=== PATIENT | female | born 2000 | race Caucasian/White ===

== ENCOUNTER 2021-01-02 10:59 | Emergency (ER) | payer MEDICAID, SELFPAY ==
[2021-01-02 10:59] VITALS: BP 140/81; PULSE 89; RESP 18; TEMP 37; O2SAT 100; BMI 20.1
--- NOTE | 2021-01-02 11:20 | PC.NURSE ---
Spoke with [facility] Hortencia Rivers APRN to come see pt.
--- NOTE | 2021-01-02 11:28 | PC.NURSE ---
Crackers given to pt
--- NOTE | 2021-01-02 11:36 | PC.NURSE ---
Pt states that she just set up an appointment with dee in [place] and hasn't seen them yet. Pt states she is agreeable to see [facility] here but wants to get out of here as soon as possible.
--- NOTE | 2021-01-02 11:41 | HMH.EDGENADL ---
ED Disposition Clinical Impression: Second trimester , Anemia affecting Depression Qualifiers: Depression Type: other depression Qualified Code(s): F32.89 - Other specified depressive episodes Disposition: Home Health Service Condition on Discharge: Fair Instructions: Depression (Mild to Moderate) (Alternative Therapy) Additional Instructions: Follow-up with psychiatry clinic as scheduled return to emergency room if any suicidal thoughts take [id number] iron supplements follow-up with [facility] Referrals: Arabella Ramos APRN [Primary Care Provider] - Time of Disposition: 12:00 - Critical Care Critical Care Time: No Attestation: On 01/02/21, the high probability of a clinically significant, sudden or life threatening deterioration of the following system(s) required my full and direct attention, intervention and personal management. The time I documented below is in addition to time spent performing reported procedures but includes the following listed in this critical care notation. Medical Decision Making - Medical Records Medical records reviewed: Yes: I reviewed the patient's medical records. - Ba Inquiry Pt receiving controlled substance: No Vital Signs: 01/02/21 10:59 Temperature 98.6 F Temperature Source Oral Pulse Rate [Left Radial] 89 Respiratory Rate 18 Blood Pressure [Right Arm] 140/81 Blood Pressure Mean [Right Arm] 100 Blood Pressure Source [Right Arm] Automatic Cuff Blood Pressure Position [Right Arm] Sitting 02 Sat by Pulse Oximetry 100 Oxygen Delivery Method Room Air - Lab Data Lab results reviewed: Yes: I reviewed the patient's lab results. Medical Decision Narrative: 20-year-old gravid female 3 para 1 history of depression in the past was here because she mentioned to her new web knitter that she at one point felt like hurting herself after arguments with her mom where police was called at the present time she denies any suicidal tendencies does not want to hurt her self she is not homicidal. She is here with her boyfriend she is gotten flattened affect but otherwise normal exam. Consult with psychiatry nurse practitioner who has set up an appointment for the patient. General Adult HPI - General Chief complaint: Psychiatric Symptoms Stated complaint: depression Time Seen by Provider: 01/02/21 11:10 Mode of Arrival: Ambulatory Source of Information: Patient Limitations: No Limitations Description of Symptoms (Recalled from ER Triage Doc. by RN): Pt sent by her pediatric social worker because she had a thought yesterday about hurting herself. States she had no plan or how she was going to do this, also states that she has not thought of hurting herself at the current moment but she had told her pediatric social worker this and she was told to come for evaluation. - History of Present Illness HPI narrative: Patient is a 20-year-old 3 para 1 with history of depression in the past 5 months who has had altercations with her mother who called police on her and since then has had a pediatric social worker for the last 4 days patient mentioned the possibility of hurting herself several days ago but has no suicidal thoughts or intentions or plan now. Outside of the web knitter patient has no psychiatric history. Lives with boyfriend. - Related Data Allergies Allergy/AdvReac Type Severity Reaction Status Date / Time Penicillins Allergy Verified 01/02/21 11:28 [facility] History - Hepatitis A Screen Drug use history?: No High risk sexual behaviors?: No History of sexually transmitted infection?: No Currently employed?: No Childcare worker?: No Do you have indoor plumbing?: Yes Do you have electricity?: Yes Attestation statement:: This patient has been screened for Hepatitis A risk factors. I have reviewed the patient's past medical history: Yes - Social History Alcohol Intake: never Occupational Status: other ROS Obtained
--- NOTE | 2021-01-02 11:41 | PC.NURSE ---
Hortencia Rivers at bedside
[2021-01-02 12:03] VITALS: BP 132/71; PULSE 74; RESP 16; TEMP 36.7; O2SAT 98
== END 2021-01-02 12:09 | disposition home health service (06) ==
PROVIDERS: Emergency Provider Emergency Medicine; PCP Nurse Practitioner Family
DX: O99.342 Other mental disorders complicating pregnancy, second trimester (principal); Z3A.20 20 weeks gestation of pregnancy; O99.019 Anemia complicating pregnancy, unspecified trimester
CPT/HCPCS: 99281

== ENCOUNTER 2021-04-02 14:43 | Outpatient (CLI) | payer MEDICAID, SELFPAY ==
[2021-04-02 15:20] VITALS: BMI 23.1
[2021-04-02 15:22] VITALS: BP 115/79; PULSE 76; RESP 20; O2SAT 99; BMI 23.1
[2021-04-02 15:36] LABS: Microscopic, Urine URINE MICROSCOPIC (MICROSCOPIC)
[2021-04-02 15:38] LABS: Appearance,Urine CLEAR (Clear); Bilirubin,Urine Negative (Negative); Blood, Urine Negative (Negative); Color,Urine YELLOW (Yellow); Glucose,Urine (UA) Negative (Negative); Ketones,Urine Negative (Negative); Leukocyte Esterase,Urine TRACE (Negative); Nitrate,Urine Negative (Negative); PH,Urine 7.5 (5.0-8.5); Protein,Urine Negative (Negative); Urobilinogen,Urine 0.2 EU/dl (0.2)
[2021-04-02 15:50] LABS: Amphetamine/Metha Screen,Urine Negative ng/ml (<1000)
[2021-04-02 15:51] LABS: Barbiturates Screen,Urine Negative ng/ml (<200); Benzodiazepines Screen,Urine Negative ng/ml (<200)
[2021-04-02 15:52] LABS: Cannabinoid Screen,Urine Positive ng/ml (<50); Cocaine Screen,Urine Negative ng/ml (<300)
[2021-04-02 15:53] LABS: Methadone Screen,Urine Negative ng/ml (<300)
[2021-04-02 15:54] LABS: Opiate Screen,Urine Negative ng/ml (<300); Phencyclidine Screen,Urine Negative ng/ml (<25); RBC,Urine Occasional #/hpf (0-3)
== END 2021-04-02 15:50 | disposition home or self-care (01) ==
LOC: OBOUT 14:46 → OB 14:48
PROVIDERS: PCP Nurse Practitioner Family; Visit Provider Nurse Practitioner Obstetrics & Gynecology
DX: O47.03 False labor before 37 completed weeks of gestation, third trimester (principal); Z3A.34 34 weeks gestation of pregnancy
CPT/HCPCS: 59025; 80305; 81001

== ENCOUNTER 2021-04-03 09:43 | Outpatient (CLI) | payer MEDICAID, SELFPAY ==
[2021-04-03 09:48] VITALS: BP 131/77; PULSE 63; RESP 18; TEMP 37; O2SAT 100; BMI 23.1
--- NOTE | 2021-04-03 09:49 | US_ITS ---
PROCEDURE: US OB >= 14 WEEKS FETUS CLINICAL INDICATION: vaginal bleeding COMPARISON: No exams were available for comparison FINDINGS: The exam is limited secondary to lack of amniotic fluid. There is a single live fetus which is in breech presentation. There are no previous exams available for comparison. Cervix is closed and measures 3 cm. The placenta is anterior and grade 1. Along the inferior aspect of the placenta there is some heterogeneous low echogenicity at the uterine wall and placenta junction which may be due to an area of abruption. A large cystic structure is present in the abdomen measuring 8 x 5 cm. The etiology is undetermined based on this exam. The ELLIS is 0. Only 1 pocket of fluid was identified at 1.4 cm. The stomach is not identified. Measurements: Average ultrasound age 31weeks. Gestational Age 31weeks Estimated due date by ultrasound age 1106/05/2021. Estimated weight 1,737g. This is 10th percentile. BPD = 30weeks 6days OFD = 31weeks HC = 30weeks 5days AC = 32weeks 2days FL = 30weeks Growth Percentile= 23Percent% Heart Rate = 133bpm HC/AC is 0.99 CI is 0.77 FL/BPD is 0.75 FL/AC is 0.2 IMPRESSION: Live IUP at 31 weeks. Estimated weight is 1737 g which is 10th percentile indicating intrauterine growth restriction. Oligohydramnios. ELLIS 0. Large cystic structure noted within the abdomen etiology undetermined. Please correlate with previous outside Ob ultrasounds unavailable for review at this time. The stomach was not demonstrated Anterior placenta with suspected small abruption inferiorly Dictated by: Santi Sanchez MD 04/03/2021 10:57 Santi Sanchez MD in [place] 04/03/2021 10:57
[2021-04-03 10:31] LABS: Barbiturates Screen,Urine Negative ng/ml (<200)
[2021-04-03 10:32] LABS: Amphetamine/Metha Screen,Urine Negative ng/ml (<1000); Benzodiazepines Screen,Urine Negative ng/ml (<200)
[2021-04-03 10:33] LABS: Cannabinoid Screen,Urine Positive ng/ml (<50)
[2021-04-03 10:34] LABS: Cocaine Screen,Urine Negative ng/ml (<300); Methadone Screen,Urine Negative ng/ml (<300)
[2021-04-03 10:35] LABS: Opiate Screen,Urine Negative ng/ml (<300); Phencyclidine Screen,Urine Negative ng/ml (<25)
--- NOTE | 2021-04-03 10:39 | HMH.HPDC ---
General - General Admission date:: 04/03/21 Discharge date: 04/03/21 *Admission Date: 04/03/21 *Chief complaint: contractions, vaginal bleeding *History of present illness: 20 yo @ 32 11/06 [facility] 05/25/21 care in [place]; onset of care was late at 17 weeks Presented to [facility] OB triage today with complaint of contractions and vaginal bleeding that began 8am today She was seen in [facility] OB triage yesterday for contractions as well, and cervix closed on exam On exam today, dark blood was noted in vaginal vault and cervix 2cm dilated contractions are irregular and bleeding is currently slight movement has never been normal She denies any other symptoms Bedside ultrasound in triage today showed fetus in arcelia breech presentation and anhydramnios complicated by known anomalies first observed on 20 week ultrasound A large renal mass was noted on left kidney and right kidney was small and echogenic Stomach was not visualized and she had no amniotic fluid She has been counseled by [facility] regarding status and unlikelihood of viability with expected pulmonary hypoplasia She was supposed to have a f/u ultrasound with MFM today Current plan is to deliver at via [facility] and provide comfort care for the infant [facility] History I have reviewed the patient's past medical history: Yes *Have you ever received a pneumonia vaccine?: No *Have you received a flu vaccine this season?: No Other Surgeries: Yes: - *Social History Smoking Status: Never smoker Alcohol Intake: never *Occupational Status:: unemployed *Travel in the last 8 weeks: None Family Hx:: Non-contributory : 3 Para: 2 LMP comments: Review of Systems - Review of Systems Review of systems:: pertinent systems reviewed and negative unless documented below - *Genitourinary Reports abnormal vaginal bleeding, Reports other (contractions) Exam Vital signs and Labs for Last 24 Hours: Temp Pulse Resp BP Pulse Ox 98.6 F 63 18 131/77 100 04/03/21 09:48 04/03/21 09:48 04/03/21 09:48 04/03/21 09:48 04/03/21 09:48 Laboratory Results - last 24 hr 04/03/21 09:26: Urine Opiates Screen Negative, Urine Methadone Screen Negative, Ur Barbituates Screen Negative, Ur Phencyclidine Scrn Negative, Ur Amphetamines Screen Negative, U Benzodiazepines Scrn Negative, Urine Cocaine Screen Negative, U Marijuana (THC) Screen Positive H I & O for Last 24 hours: Intake & Output 03/31/21 04/01/21 04/02/21 04/03/21 11:59 11:59 11:59 11:59 Weight 143 lb - Constitutional no acute distress - *Routine HEENT Exam Head: Present: normocephalic Eye: Present: EOMI, PERRL ENT: Present: mucous membranes moist - *Routine Neck Exam Present: supple. Absent: lymphadenopathy - *Routine Respiratory Exam Present: CTA bilaterally - *Routine Cardiovascular Exam Present: RRR - *Routine Abdominal Exam Present: soft, normoactive bowel sounds. Absent: tenderness, distended - *Routine Rectal Exam Rectal:: deferred - *Routine Genitalia Exam Genitalia:: normal female Comment:: cervix 2/50/-2 small dark blood in vaginal vault no active bleeding - *Routine Extremities Exam Absent: cyanosis, clubbing, edema - *Routine Skin Exam Present: warm. Absent: rash - *Routine Neurological Exam Present: alert, oriented X3 Results Labs on day of discharge: Labs from last 24 hours 04/03/21 09:26 Urine Opiates Screen Negative Urine Methadone Screen Negative Ur Barbituates Screen Negative Ur Phencyclidine Scrn Negative Ur Amphetamines Screen Negative U Benzodiazepines Scrn Negative Urine Cocaine Screen Negative U Marijuana (THC) Screen Positive H - Imaging and Cardiology nst Status: image reviewed by me Additional comments: NST: baseline 120s, normal variability, + accelerations category 1 TOCO: contrections q 3-5 DS: Diagnosis - Discharge Diagnosis (1) 32 weeks gesta
== END 2021-04-03 10:56 | disposition short-term general hospital (02) ==
LOC: OBOUT 09:45 → OB 09:46
PROVIDERS: PCP Obstetrics & Gynecology; Visit Provider Obstetrics & Gynecology
DX: O47.03 False labor before 37 completed weeks of gestation, third trimester (principal); O26.859 Spotting complicating pregnancy, unspecified trimester; Z3A.32 32 weeks gestation of pregnancy
CPT/HCPCS: 59025; 76805; 80305; 96365

== ENCOUNTER 2021-06-28 16:58 | Emergency (ER) | payer MEDICAID, SELFPAY ==
--- NOTE | 2021-06-28 17:09 | XR_ITS ---
PROCEDURE INFORMATION: Exam: XR Left Hand Exam date and time: 06/28/2021 5:09 PM Age: 20 years old Clinical indication: Injury or trauma; Other: Shut in door; Blunt trauma (contusions or hematomas) and sprain or strain; Left; Little finger; Hand; Injury date: 06/27/21; Additional info: Injury to pinky finger- smashed in door and pulled TECHNIQUE: Imaging protocol: XR Left hand. Views: 3 or more views. COMPARISON: No relevant prior studies available. FINDINGS: Bones/joints: No fracture. No malalignment. Soft tissues: Mild soft tissue swelling in the 5th digit. IMPRESSION: No evidence of acute osseous injury
[2021-06-28 17:28] VITALS: BP 141/93; PULSE 86; RESP 18; TEMP 36.8; O2SAT 99; BMI 24.2
--- NOTE | 2021-06-28 17:31 | HMH.EDUTC ---
[facility] [place] Disposition Clinical Impression: Finger sprain Qualifiers: Encounter type: initial encounter Finger: little finger Sprain of finger site: unspecified site Laterality: left Qualified Code(s): S63.617A - Unspecified sprain of left little finger, initial encounter Disposition: Home, Self-Care Condition on Discharge: Good Instructions: How To Perform RICE (Rest, Ice, Compress, Elevate), Hydrocortisone Topical, How to Omar Tape Additional Instructions: *RICE, Rest the extremity, Ice 15-20 minutes 3-4 times daily, Compress- wear the latoya wrap as discussed as much as possible to help reduce swelling and pain, Elevate the extremity when at rest *Finger Splint/Omar tape is for support and help control swelling, use it except in the shower. Be sure that is not to tight but not to loose either *Elevate when resting *Ibuprofen as directed on package every 6-8 hours as needed for pain an inflammation. If need something more can take Tylenol in between doses of Ibuprofen to help Immediately follow up with your family doctor for new or worsening of symptoms, or no noticeable improvement over the next 3-5 days Neosporin to abrasion on Finger Referrals: Arabella Ramos APRN [Primary Care Provider] - As needed Time of Disposition: 17:41 Medical Decision Making - Ba Inquiry Pt receiving controlled substance: No Ba was queried for this patient: No Vital Signs: 06/28/21 17:28 06/28/21 17:44 Temperature 98.3 F 98.3 F Temperature Source Oral Pulse Rate 86 Pulse Rate [Right Brachial] 86 Respiratory Rate 18 16 Blood Pressure 141/93 H Blood Pressure [Right Arm] 141/93 H Blood Pressure Mean [Right Arm] 109 Blood Pressure Source [Right Arm] Automatic Cuff Blood Pressure Position [Right Arm] Sitting 02 Sat by Pulse Oximetry 99 Oxygen Delivery Method Room Air - Radiology Data #1 Image(s): Hand Image Reviewed: Yes I reviewed the patient's radiology image Preliminary Findings: No Fracture Seen No acute fracture [facility] [place] HPI - General Stated complaint: AO06/28/21@2315 left finger injury Time Seen by Provider: 06/28/21 17:31 Mode of Arrival: Ambulatory Source of Information: Patient Limitations: No Limitations Description of Symptoms (Recalled from Triage Doc. by RN): PATIENT C/O INJURY TO LEFT PINKY FINGER AFTER GETTING IT CAUGHT IN BEDROOM DOOR LAST NIGHT HEENT Symptoms (Recalled from RN notes): No Resp Symptoms (Recalled from RN notes): No Skin Symptoms (Recalled from RN notes): No MS Symptoms (Recalled from RN notes): Yes Functional Status (Recalled from RN notes): wnl - History of Present Illness Provider Complaint: Patient states that she accidently got her left little finger caught in bedroom door last night when it shut on her hand and she jerked it out States that now she has a scratch on her finger and having some swelling and bruising so she came in to get it checked - Related Data Allergies Allergy/AdvReac Type Severity Reaction Status Date / Time Penicillins Allergy Verified 01/02/21 11:28 - Worker's Comp Is this a Worker's Comp case?: No [facility] History - Hepatitis A Screen Drug use history?: No High risk sexual behaviors?: No History of sexually transmitted infection?: No Currently employed?: No Childcare worker?: No Do you have indoor plumbing?: Yes Do you have electricity?: Yes Attestation statement:: This patient has been screened for Hepatitis A risk factors. I have reviewed the patient's past medical history: Yes Other Surgeries: Yes: - Social History Smoking Status: Never smoker Alcohol Intake: never Occupational Status: unemployed Family Hx:: Non-contributory ROS Obtained: Yes All systems reviewed & no additional complaints, Yes Systems reviewed as appropriate & no additional complaints - Constitutional Constitutional: Reports system reviewed and no additional complaints, except as docu, Denies body ache, Denies chills, Denies fever(s) - ENT Ears, N
[2021-06-28 17:44] VITALS: BP 141/93; PULSE 86; RESP 16; TEMP 36.8; O2SAT 99
== END 2021-06-28 17:48 | disposition home or self-care (01) ==
PROVIDERS: Emergency Provider Nurse Practitioner; PCP Nurse Practitioner Family
DX: S63.617A Unspecified sprain of left little finger, initial encounter (principal); W23.0XXA Caught, crushed, jammed, or pinched between moving objects, initial encounter; Y92.9 Unspecified place or not applicable
CPT/HCPCS: 73130; 99202; G0463

== ENCOUNTER 2021-06-30 18:42 | Emergency (ER) | payer MEDICAID, SELFPAY ==
[2021-06-30 19:09] VITALS: BP 139/93; PULSE 80; RESP 18; TEMP 37.7; O2SAT 99; BMI 24.2
--- NOTE | 2021-06-30 19:37 | HMH.EDUTC ---
[facility] [place] Clinical Impression: Exposure to COVID-19 virus Cellulitis Qualifiers: Site of cellulitis: extremity Site of cellulitis of extremity: lower extremity Laterality: left Qualified Code(s): L03.116 - Cellulitis of left lower limb Disposition: Home, Self-Care Condition on Discharge: Good Instructions: Cellulitis, DI for COVID-19 (Suspected or Confirmed ), Preventing the Spread of Coronavirus Discharge Instructions Additional Instructions: Drink plenty of fluids. Take tylenol or ibuprofen for pain or fever. Take the medications as directed. Follow up with your regular doctor. GO TO THE ER FOR ANY WORSENING SYMPTOMS Quarantine until you know the results of your covid-19 test. If it is positive, the health department should call you and give you further instructions about your length of Quarantine and other things. Notify your school or workplace of your results and follow their instructions regarding return to work/school. Keep the wound clean and dry. Watch the for signs of worsening infection, such as worsening redness, swelling, drainage, fever. etc. take tylenol or ibuprofen for pain. Follow up with your regular doctor. Prescriptions: Sulfamethoxazole/Trimethoprim [Bactrim DS tablet] 1 each PO BID 10 Days #20 tab Transmission Status: Received by [id number] Mupirocin [Bactroban 2% Ointment 22gm tube] 1 applicatio TP TID 7 Days #1 gm Transmission Status: Received by [id number] cephALEXin [cephALEXin 500mg capsule] 500 mg PO Q6H 10 Days #40 cap Transmission Status: Received by [id number] Referrals: Arabella Ramos APRN [Primary Care Provider] - Time of Disposition: 19:57 Medical Decision Making - Medical Records Medical records reviewed: No: I reviewed the patient's medical records. - Ba Inquiry Pt receiving controlled substance: No Vital Signs: 06/30/21 19:09 06/30/21 20:17 Temperature 99.8 F H 99.8 F H Temperature Source Oral Pulse Rate 80 Pulse Rate [Left] 80 Respiratory Rate 18 18 Blood Pressure 139/93 H Blood Pressure [Right Arm] 139/93 H Blood Pressure Mean [Right Arm] 108 02 Sat by Pulse Oximetry 99 [facility] [place] [place] HPI - General Stated complaint: covid test, infected cut on finger, inf tattoo on Time Seen by Provider: 06/30/21 19:38 Mode of Arrival: Ambulatory Source of Information: Patient Limitations: No Limitations Description of Symptoms (Recalled from Triage Doc. by RN): pt was exposed to covid positive friend 5 days ago. pt c/o loss of taste/smell. pt was seen here on 06/28. reportedly pt caught her L little finger in a door. xray of L hand was negative. pt reports that it is infected. on the underside of her finger there is a pea sized area that appears as if a scab may have came off. finger is red, warm and swollen. pt also c/o L upper thigh swelling, redness and warmth over a tattoo she received six days ago. pt believes it is also infected. HEENT Symptoms (Recalled from RN notes): Yes (loss of taste/smell) Resp Symptoms (Recalled from RN notes): No Skin Symptoms (Recalled from RN notes): Yes (see above) MS Symptoms (Recalled from RN notes): No Functional Status (Recalled from RN notes): wnl - History of Present Illness Provider Complaint: She is here with several complaints. She closed her finger up in a car door yesterday. She came here and had it x-rayed and it was not broke. But, since then she has began having redness at the site of a wound that the accident caused on her left 5th finger. She also has a tattoo on her left upper leg that has redness and warmth around it. She thinks that it is getting infected. She denies any fever or chills. Also, she states that since yesterday, she has had a decreased sense of taste and smell. She denies any other covid-19 symptoms, but she would like to be tested for covid-19. - Related Data Previous Rx's Medication Instructions Recorded Mupirocin [Bactr
[2021-06-30 20:17] VITALS: BP 139/93; PULSE 80; RESP 18; TEMP 37.7
== END 2021-06-30 20:18 | disposition home or self-care (01) ==
PROVIDERS: Emergency Provider Nurse Practitioner Family; PCP Nurse Practitioner Family
DX: L03.116 Cellulitis of left lower limb (principal); L03.012 Cellulitis of left finger; Z20.822 Contact with and (suspected) exposure to COVID-19
CPT/HCPCS: 99202; C9803; G0463; U0003; U0005

== ENCOUNTER 2021-09-11 17:15 | Emergency (ER) | payer MEDICAID, SELFPAY ==
[2021-09-11 17:16] VITALS: BP 154/100; PULSE 89; RESP 24; TEMP 36.9; O2SAT 100; BMI 24.2
--- NOTE | 2021-09-11 17:59 | XR_ITS ---
PROCEDURE INFORMATION: Exam: XR Lumbosacral Spine Exam date and time: 09/11/2021 5:59 PM Age: 20 years old Clinical indication: Low back pain TECHNIQUE: Imaging protocol: XR of the lumbosacral spine. Views: 2 or 3 views. COMPARISON: No relevant prior studies available. FINDINGS: Bones/joints: Normal. No acute fracture. Normal alignment. Soft tissues: Unremarkable. IMPRESSION: No acute findings.
--- NOTE | 2021-09-11 18:31 | ECG_ITS ---
APPROVED REPORT Exam: Resting ECG HR:62 bpm ECG Measurements Heart Rate [address] 146 P 59 QRSd 98 QRS 61 QT 373 T 57 QTc 378 Conclusion SINUS RHYTHM WITH SINUS ARRHYTHMIA NORMAL ECG UNCONFIRMED REPORT Electronically signed by : Eloy Altamirano MD 09/11/2021 18:57:21
[2021-09-11 18:37] LABS: Microscopic, Urine URINE MICROSCOPIC (MICROSCOPIC)
[2021-09-11 18:46] LABS: Appearance,Urine CLEAR (Clear); Bilirubin,Urine Negative (Negative); Blood, Urine Negative (Negative); Color,Urine YELLOW (Yellow); Glucose,Urine (UA) Negative (Negative); Ketones,Urine Negative (Negative); Leukocyte Esterase,Urine Negative (Negative); Nitrate,Urine Negative (Negative); PH,Urine 6.5 (5.0-8.5); Protein,Urine Negative (Negative); Specific Gravity, Urine 1.025 (1.005-1.030)
[2021-09-11 18:47] LABS: Urine Pregnancy, HCG Qual. Negative (Negative)
[2021-09-11 18:49] LABS: Basophils # 0.1 K/mm3 (0-0.2); Basophils % 1.2 % (0.1-2.0); Eosinophils # 0.2 K/mm3 (0.0-0.4); Eosinophils % 2.5 % (0.1-12.0); Hematocrit 42.7 % (37.0-47.0); Hemoglobin 14.3 g/dL (12.2-16.2); Lymphocytes # 3.7 K/mm3 (0.7-4.5); Lymphocytes % 41.7 % (10-50); Mean Corpuscular HGB Conc 33.5 g/dL (31.8-35.4); Mean Corpuscular Hemoglobin 33.9 pg (27.0-31.2); Mean Corpuscular Volume 101.4 fl (81-99); Monocytes # 0.3 K/mm3 (0.1-1.0); Monocytes % 3.5 % (1.7-9.3); Neutrophils # 4.5 K/mm3 (1.8-7.8); Platelet Count 331 K/mm3 (142-424); Red Blood Count 4.21 M/mm3 (4.20-5.40); Red Cell Distribution Width 12.9 % (11.5-17.5); White Blood Count 8.7 K/mm3 (4.8-10.8)
[2021-09-11 19:00] LABS: Chloride 107 mmol/L (98-107); Sodium 139 mmol/L (136-145)
[2021-09-11 19:03] LABS: Alanine Aminotransferase 16 U/L (12-78); Albumin Level 5.6 g/dl (3.5-5.0); Albumin/Globulin Ratio 1.5 (1.1-1.8); Alkaline Phosphatase 97 U/L (38-126); Aspartate Amino Transferase 28 U/L (14-36); Bilirubin,Total 1.4 mg/dl (0.2-1.3); Blood Urea Nitrogen 13 mg/dl (7-17); Calcium 9.5 mg/dl (8.4-10.2); Carbon Dioxide 26 mmol/L (22.0-30.0); Creatinine Clearance Estimated 119 mL/min (50-200); Estimated Glomerular Filt Rate 91 ml/min (>60); GFR (African American) 110 ML/MIN (>60); Globulin 3.7 g/dL (1.3-3.2); Glucose 103 mg/dl (74-100); Total Protein,Serum 9.3 g/dl (6.3-8.2)
--- NOTE | 2021-09-11 19:23 | HMH.EDGENADL ---
ED Disposition Clinical Impression: Anxiety, Dental caries Low back pain Qualifiers: Chronicity: acute Back pain laterality: unspecified Sciatica presence: without sciatica Qualified Code(s): M54.50 - Low back pain, unspecified Disposition: Home, Self-Care Condition on Discharge: Good Instructions: DI for Low Back Pain, DI for Tooth Decay, DI for Anxiety -- Adult Additional Instructions: Follow-up with Hortencia Rivers, [facility]. Call for appointment. You are being provided with a list of physicians available for follow-up of your condition. Please call a physician on this list to arrange a follow-up appointment as soon as possible. Take Tylenol or ibuprofen for pain. Additional instructions regarding BLOOD PRESSURE: One or more of your blood pressure readings elevated today. Please contact your primary care physician for further evaluation or treatment of your blood pressure. Additional instructions for BACK PAIN: See your physician as soon as possible for further evaluation. Return immediately if back pain becomes intolerable, or if fever, numbness or weakness of your legs, loss of control of your bowels or bladder. Additional instructions for DENTAL PROBLEMS: See a dentist as soon as possible for further evaluation. Return immediately if you have an uncontrollable fever greater than 102 degrees, difficulty breathing or shortness of breath, persistent vomiting, or inability to swallow. Referrals: Arabella Ramos APRN [Primary Care Provider] - Hortencia Rivers APRN [Nurse Practitioner] - - Critical Care Critical Care Time: No Attestation: On 09/11/21, the high probability of a clinically significant, sudden or life threatening deterioration of the following system(s) required my full and direct attention, intervention and personal management. The time I documented below is in addition to time spent performing reported procedures but includes the following listed in this critical care notation. Medical Decision Making - Ba Inquiry Pt receiving controlled substance: No Vital Signs: 09/11/21 17:16 09/11/21 19:30 Temperature 98.5 F Temperature Source Oral Pulse Rate 87 Pulse Rate [Right Radial] 89 Respiratory Rate 24 Blood Pressure 174/105 H Blood Pressure [Right Arm] 154/100 H Blood Pressure Mean [Right Arm] 118 Blood Pressure Source [Right Arm] Automatic Cuff Blood Pressure Position [Right Arm] Sitting 02 Sat by Pulse Oximetry 100 100 Oxygen Delivery Method Room Air - Lab Data Lab Results 09/11/21 18:25: Urine Color Yellow, Urine Appearance Clear, Urine pH 6.5, Ur Specific [place] 1.025, Urine Protein Negative, Urine Glucose (UA) Negative, Urine Ketones Negative, Urine Blood Negative, Urine Nitrate Negative, Urine Bilirubin Negative, Urine Urobilinogen 1.0, Ur Leukocyte Esterase Negative, Urine RBC None, Urine WBC None, Ur Squamous Epith Cells None, Urine Bacteria None 09/11/21 18:25: WBC 8.7, RBC 4.21, Hgb 14.3, Hct 42.7, MCV 101.4 H, MCH 33.9 H, MCHC 33.5, RDW 12.9, Plt Count 331, MPV 9.0, Neut % (Auto) 51.0, Lymph % (Auto) 41.7, Moore % (Auto) 3.5, Eos % (Auto) 2.5, Baso % (Auto) 1.2, Neut # (Auto) 4.5, Lymph # (Auto) 3.7, Moore # (Auto) 0.3, Eos # (Auto) 0.2, Baso # (Auto) 0.1 09/11/21 18:25: Sodium 139, Potassium 4.0, Chloride 107, Carbon Dioxide 26, Anion Gap 10.0, BUN 13, Creatinine 0.80, Estimated Creat Clear 119, Estimated GFR 91, Est GFR ( Amer) 110, Glucose 103 H, Calcium 9.5, Total Bilirubin 1.4 H, AST 28, ALT 16, Alkaline Phosphatase 97, Total Protein 9.3 H, Albumin 5.6 H, Globulin 3.7 H, Albumin/Globulin Ratio 1.5 09/11/21 18:25: Urine HCG, Qual Negative 09/11/21 18:25: Ur Barbituates Screen Negative, Ur Amphetamines Screen Negative, U Benzodiazepines Scrn Negative, U Marijuana (THC) Screen Positive H Result diagrams: 09/11/21 18:25 09/11/21 18:25 Orders (Tests/Meds): ORDERS Category Date Time Status Drug Screen,Urine Stat Lab 09/11/21
[2021-09-11 19:30] VITALS: BP 174/105; PULSE 87; O2SAT 100
[2021-09-11 19:41] LABS: Barbiturates Screen,Urine Negative ng/ml (<200)
[2021-09-11 19:42] LABS: Benzodiazepines Screen,Urine Negative ng/ml (<200)
[2021-09-11 19:43] LABS: Amphetamine/Metha Screen,Urine Negative ng/ml (<1000); Cannabinoid Screen,Urine Positive ng/ml (<50)
[2021-09-11 19:44] LABS: Cocaine Screen,Urine Negative ng/ml (<300); Methadone Screen,Urine Negative ng/ml (<300)
[2021-09-11 19:45] LABS: Opiate Screen,Urine Negative ng/ml (<300)
[2021-09-11 19:46] LABS: Phencyclidine Screen,Urine Negative ng/ml (<25)
[2021-09-11 19:55] VITALS: BP 152/98; PULSE 87; RESP 16; TEMP 37.1; O2SAT 98
== END 2021-09-11 19:58 | disposition home or self-care (01) ==
PROVIDERS: Emergency Provider Emergency Medicine; PCP Nurse Practitioner Family
DX: K02.9 Dental caries, unspecified (principal); F41.9 Anxiety disorder, unspecified; M54.50 Low back pain, unspecified
CPT/HCPCS: 72100; 80053; 80305; 81001; 81025; 85025; 93005; 99282

== ENCOUNTER 2021-10-22 18:47 | Emergency (ER) | payer SELFPAY ==
[2021-10-22 20:00] VITALS: BP 120/76; PULSE 67; RESP 16; TEMP 36.7; O2SAT 97; BMI 22.6
--- NOTE | 2021-10-22 20:05 | HMH.EDUTC ---
[facility] [place] Clinical Impression: Dental abscess Disposition: Home, Self-Care Condition on Discharge: Good Instructions: Tooth Abscess Additional Instructions: Take medication as prescribed Warm compress to area may help with swelling and pain Prescriptions: clindamycin HCL [Cleocin HCl] 300 mg PO Q8H 10 Days #30 cap Transmission Status: Pending to [id number] Referrals: Provider,Referral, [Primary Care Provider] - As needed Bear May [Referring] - Time of Disposition: 20:16 Medical Decision Making - Ba Inquiry Pt receiving controlled substance: No Ba was queried for this patient: No Vital Signs: 10/22/21 20:00 Temperature 98.1 F Temperature Source Oral Pulse Rate [Left] 67 Respiratory Rate 16 Blood Pressure [Right Arm] 120/76 Blood Pressure Mean [Right Arm] 90 02 Sat by Pulse Oximetry 97 [facility] [place] - General Stated complaint: rash in l side face and neck Time Seen by Provider: 10/22/21 20:05 Mode of Arrival: Ambulatory Source of Information: Patient Description of Symptoms (Recalled from Triage Doc. by RN): pt presents with a L jaw dental abcess. HEENT Symptoms (Recalled from RN notes): Yes Resp Symptoms (Recalled from RN notes): No Skin Symptoms (Recalled from RN notes): No MS Symptoms (Recalled from RN notes): No Functional Status (Recalled from RN notes): wnl - History of Present Illness Provider Complaint: Patient states that she has been having dental problems State that she has a bad tooth on her left lower gumline States that today she has been having swelling in her left jaw area that has continued to get worse States that she doesnt have any insurance and is trying to get it lined out so she came in to see if she could get started on antibiotics - Related Data Previous Rx's Medication Instructions Recorded Mupirocin [Bactroban 2% Ointment 1 applicatio TP TID 7 Days #1 gm 06/30/21 22gm tube] Sulfamethoxazole/Trimethoprim 1 each PO BID 10 Days #20 tab 06/30/21 [Bactrim DS tablet] cephALEXin [cephALEXin 500mg 500 mg PO Q6H 10 Days #40 cap 06/30/21 capsule] clindamycin HCL [Cleocin HCl] 300 mg PO Q8H 10 Days #30 cap 10/22/21 Allergies Allergy/AdvReac Type Severity Reaction Status Date / Time Penicillins Allergy Verified 01/02/21 11:28 - Worker's Comp Is this a Worker's Comp case?: No H History - Hepatitis A Screen Drug use history?: No High risk sexual behaviors?: No History of sexually transmitted infection?: No Currently employed?: No Childcare worker?: No Do you have indoor plumbing?: Yes Do you have electricity?: Yes Attestation statement:: This patient has been screened for Hepatitis A risk factors. I have reviewed the patient's past medical history: Yes Other Surgeries: Yes: - Social History Smoking Status: Never smoker Alcohol Intake: never Occupational Status: unemployed Family Hx:: Non-contributory ROS Obtained: Yes All systems reviewed & no additional complaints, Yes Systems reviewed as appropriate & no additional complaints - ENT Ears, Nose, Mouth, and Throat: Reports system reviewed and no additional complaints, except as docu, Reports dental pain - Cardiovascular Cardiovascular: Reports system reviewed and no additional complaints, except as docu - Respiratory Respiratory: Reports system reviewed and no additional complaints, except as docu - Gastrointestinal Gastrointestingal: Reports: system reviewed and no additional complaints, except as docu Physical Exam - General General appearance: alert, in no apparent distress - Expanded ENT Exam Teeth exam: Present: dental caries, gingival swelling, other (pain and swelling in left lower jaw area, swelling in gumline with redness ) - Respiratory Respiratory exam: Present: normal lung sounds bilaterally. Absent: respiratory distress - Cardiovascular Cardiovascular exam: Present: regular rate, normal rhythm. Absent: JVD - Abdomin
[2021-10-22 20:16] VITALS: BP 120/76; PULSE 67; RESP 16; TEMP 36.7
== END 2021-10-22 20:17 | disposition home or self-care (01) ==
PROVIDERS: Emergency Provider Nurse Practitioner
DX: K04.7 Periapical abscess without sinus (principal); Z88.0 Allergy status to penicillin
CPT/HCPCS: 99212; G0463

== ENCOUNTER 2022-04-01 10:33 | Emergency (ER) | payer SELFPAY ==
[2022-04-01 10:34] VITALS: BP 122/70; PULSE 72; RESP 16; TEMP 37.1; O2SAT 99; BMI 23.3
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
[2022-04-01 13:52] VITALS: BP 120/70; PULSE 80; RESP 16; TEMP 37; O2SAT 100
== END 2022-04-01 14:05 | disposition home or self-care (01) ==
PROVIDERS: Emergency Provider Emergency Medicine; PCP Nurse Practitioner Family
DX: M25.571 Pain in right ankle and joints of right foot (principal); R22.0 Localized swelling, mass and lump, head; Y04.0XXA Assault by unarmed brawl or fight, initial encounter; Y92.009 Unspecified place in unspecified non-institutional (private) residence as the place of occurrence of the external cause
CPT/HCPCS: 70450; 72125; 73610; 73630; 99285

== ENCOUNTER 2022-07-01 19:51 | Emergency (ER) | payer SELFPAY ==
[2022-07-01 21:58] VITALS: BMI 24.2
[2022-07-01 21:59] LABS: Coronavirus 19, PCR Not Detected (NotDetected); Influenza A, PCR Not Detected (NotDetected); Influenza B, PCR Not Detected (NotDetected)
--- NOTE | 2022-07-01 21:59 | XR_ITS ---
PROCEDURE INFORMATION: Exam: XR Chest Exam date and time: 07/01/2022 10:14 PM Age: 21 years old Clinical indication: Cough TECHNIQUE: Imaging protocol: Radiologic exam of the chest. Views: 2 views. COMPARISON: CT CERVICAL SPINE WO CON 04/01/2022 11:01 AM FINDINGS: Lungs: No focal consolidation. Pleural spaces: No pleural effusion. No pneumothorax. Heart/Mediastinum: Unremarkable cardiomediastinal silhouette. Bones/joints: No acute osseous findings. IMPRESSION: No focal consolidation.
[2022-07-01 22:00] VITALS: BP 122/72; PULSE 89; RESP 16; TEMP 36.8; O2SAT 98; BMI 24.2
--- NOTE | 2022-07-01 23:09 | HMH.EDURI ---
Discharge Plan Disposition Patient Disposition: Home, Self-Care Prescriptions Prescriptions: New azithromycin [azithromycin] 250 mg tablet 250 mg PO DIRECTED Qty: 6 0RF Rx Instructions: Take two (2) tablets on day #1, then one (1) tablet day #2 thru #5 prednisone [prednisone] 20 mg tablet 20 mg PO BID Qty: 10 0RF benzonatate 100 mg Capsule 100 mg PO Q8H Qty: 20 0RF Referrals Follow up/Referrals: Provider,Referral, MD [Primary Care Provider] - See instructions Clinical Impressions Clinical Impression: Bronchitis Instructions Patient Instructions: DI for Acute Bronchitis Discharge ED Provider: Aaron Bernal URI/Sore Throat HPI General Chief Complaint: Upper Respiratory Infection Stated Complaint: congestion Time Seen by Provider: 07/01/22 23:09 Mode of Arrival: Family Vehicle Source of Information: Patient Limitations: No Limitations Description of Symptoms (Recalled from ER Triage Doc. by RN): Pt c/o sore throat, congestion, n/v, body aches, cough, and chills. States this began 2 days ago. Denies fevers. Denies SOA. History of Present Illness HPI Narrative: uri sx and congestion with sore throat over the last few days - no def exposure MD Complaint: cough, sore throat and nasal congestion Onset (ago): day(s) Duration: intermittent Severity: moderate Able to tolerate fluids by mouth: Yes Treatments prior to arrival: acetaminophen Related Data Previous Rx's Medication Instructions Recorded azithromycin 250 mg tablet 250 mg PO DIRECTED #6 tabs 07/01/22 benzonatate 100 mg capsule 100 mg PO Q8H #20 caps 07/01/22 prednisone 20 mg tablet 20 mg PO BID #10 tabs 07/01/22 Allergies Allergy/AdvReac Type Severity Reaction Status Date / Time Penicillins Allergy Verified 04/01/22 13:22 [facility] Disclaimer: The information contained in this section may have been updated after the patient was seen, as this information can be updated by other users. Social History (Updated 04/01/22 @ 13:18 by Paola Yancey RN) Smoking Status: Former smoker alcohol intake: never current occupational status: unemployed Travel in the last 8 weeks: None ROS Obtained: Yes All systems reviewed & no additional complaints except as documented Physical Exam General General appearance: alert Head Head exam: normocephalic Eye Eye exam: Present PERRL and EOMI; Absent jaundice ENT ENT exam: Present normal oropharynx, mucous membranes moist and TM's normal bilaterally Neck Neck exam: Absent trachea midline Respiratory Respiratory exam: Present normal lung sounds bilaterally; Absent respiratory distress Cardiovascular Cardiovascular exam: Present regular rate; Absent systolic murmur Abdominal Exam Abdominal exam: Present soft Extremities Exam Extremities exam: Present full ROM Neurological Exam Neurological exam: Present alert, oriented X3 and CN II-XII intact; Absent reflexes normal Psychiatric Psychiatric exam: Present normal affect Skin Skin exam: Absent rash Medical Decision Making Medical Records Medical records reviewed: Yes I reviewed the patient's medical records. Ba Inquiry Pt receiving controlled substance: No Vital Signs: 07/01/22 22:00 Temperature 98.3 F Temperature Source Oral Pulse Rate [Right] 89 Respiratory Rate 16 Blood Pressure [Right Arm] 122/72 Blood Pressure Mean [Right Arm] 88 02 Sat by Pulse Oximetry 98 Oxygen Delivery Method Room Air Lab Data Lab results reviewed: Yes I reviewed the patient's lab results. Lab Results 07/01/22 21:50: SARS-CoV-2 (PCR) Not detected, Influenza A Untype (PCR) Not detected, Influenza Type B (PCR) Not detected Orders (Tests/Meds): ED MEDICATIONS Discontinued Medications Generic Name Dose Route Start Last Admin Trade Name Freq PRN Reason Stop Dose Admin Ondansetron HCl 4 mg 07/01/22 22:14 Ondansetron 4mg Odt SL 07/01/22 22:15 ONCE ONE ORDERS Category Date Time Status
[2022-07-01 23:24] VITALS: BP 119/80; PULSE 70; RESP 16; TEMP 36.8; O2SAT 97
[2022-07-01 23:32] LABS: Strep Scrn Group A (Rapid) Negative (Negative)
== END 2022-07-01 23:27 | disposition home or self-care (01) ==
PROVIDERS: Emergency Provider Emergency Medicine
DX: J40 Bronchitis, not specified as acute or chronic (principal)
CPT/HCPCS: 71046; 87430; 99283; C9803; U0003; U0005

== ENCOUNTER 2023-09-18 17:13 | Emergency (ER) | payer OTHER, SELFPAY ==
[2023-09-18 17:25] VITALS: BP 128/83; PULSE 91; RESP 21; TEMP 37.1; O2SAT 99; BMI 30.7
--- NOTE | 2023-09-18 18:16 | EXP.UTC ---
Discharge Plan Disposition Patient Disposition: Home, Self-Care Condition: Good Prescriptions Prescriptions: New loratadine 10 mg tablet 10 mg PO DAILY Qty: 30 0RF No Action citalopram 20 mg tablet 20 mg PO DAILY Patient Comments: TAKE ONE HALF (1/2) TABLET FOR FOUR (4) DAYS, THEN TAKE ONCE DAILY propranolol 20 mg tablet 20 mg PO BID Patient Comments: TAKE ONE (1) TABLET TWICE A DAY BY ORAL ROUTE, FOR PANIC ATTACKS. Referrals Follow up/Referrals: Provider,Referral, MD [Primary Care Provider] - See instructions Clinical Impressions Clinical Impression: Allergic rhinitis Qualifiers: Allergic rhinitis seasonality: seasonal Instructions Patient Instructions: DI for Allergic Rhinitis Discharge ED Provider: Mayte Guillen [facility] General Stated complaint: vomitting, headache Mode of Arrival: Ambulatory Source of Information: Patient Limitations: No Limitations Time Seen by Provider: 09/18/23 18:01 Description of Symptoms (Recalled from Triage Doc. by RN): PATIENT C/O HEADACHE, NAUSEA, AND DIZZINESS HEENT Symptoms (Recalled from RN notes): Yes Resp Symptoms (Recalled from RN notes): No Skin Symptoms (Recalled from RN notes): No MS Symptoms (Recalled from RN notes): No Functional Status (Recalled from RN notes): WNL History of Present Illness Provider Complaint: Pt reports that she has had a frontal headache with a runny nose for the last 2 days. She denies taking anything for her symptoms. Related Data Home Medications Medication Instructions Recorded Confirmed citalopram 20 mg tablet 20 mg PO DAILY 09/18/23 09/18/23 propranolol 20 mg tablet 20 mg PO BID 09/18/23 09/18/23 Previous Rx's Medication Instructions Recorded loratadine 10 mg tablet 10 mg PO DAILY #30 tabs 09/18/23 Allergies Allergy/AdvReac Type Severity Reaction Status Date / Time Penicillins Allergy Verified 04/01/22 13:22 sertraline Allergy Verified 09/18/23 17:44 Worker's Comp Is this a Worker's Comp case?: No [facility] Disclaimer: The information contained in this section may have been updated after the patient was seen, as this information can be updated by other users. Social History (Updated 04/01/22 @ 13:18 by Paola Yancey RN) Smoking Status: Former smoker alcohol intake: never current occupational status: unemployed Travel in the last 8 weeks: None ROS Obtained: Yes All systems reviewed & no additional complaints except as documented Constitutional Constitutional: Reports system reviewed and no additional complaints, except as documented and Reports headache(s) Eyes Eyes: Reports system reviewed and no additional complaints, except as documented ENT Ears, Nose, Mouth, and Throat: Reports system reviewed and no additional complaints, except as documented, Reports headache(s), Reports nasal discharge, Reports sinus pain and Reports sinus pressure Cardiovascular Cardiovascular: Reports system reviewed and no additional complaints, except as documented Respiratory Respiratory: Reports system reviewed and no additional complaints, except as documented Gastrointestinal Gastrointestingal: Reports system reviewed and no additional complaints, except as documented Genitourinary Female Genitourinary: Reports system reviewed and no additional complaints, except as documented Musculoskeletal Musculoskeletal: Reports system reviewed and no additional complaints, except as documented Integumentary/Breasts Skin/Breast: Reports system reviewed and no additional complaints, except as documented Neurologic Neurologic: Reports system reviewed and no additional complaints, except as documented and Reports headache(s) Endocrine Endocrine: Reports system reviewed and no additional complaints, except as documented Hematologic/Lymphatic Henatologic/Lymphatic: Reports system reviewed and no additional complaints, except as documented Allergic/Immunologic Allergic/Immunologic: Reports system reviewed and no additional complaints, except as documented Physical Exam General General appearance: alert and in no apparent distress Head Head exam: atraumatic and normocephalic Eye Eye exam: Present normal appearance ENT ENT exam: Present mucous membranes moist Expanded ENT Exam External ear exam: Present normal external inspection Nose exam: Present sinus tenderness (frontal) Nasal speculum exam: Bilateral: other (clear drainage) Mouth exam: Present normal external inspection Teeth exam: Present normal inspection Throat exam: Present normal inspection Neck Neck exam: Present normal inspection Chest Chest inspection: Present normal inspection and symmetric chest wall rise Respiratory Respiratory exam: Present normal lung sounds bilaterally Cardiovascular Cardiovascular exam: Present regular rate and normal rhythm Abdominal Exam Abdominal exam: Present soft and normal bowel sounds Extremities Exam Extremities exam: Present normal inspection Back Exam Back exam: Present normal inspection Neurological Exam Neurological exam: Present alert and oriented X3 Psychiatric Psychiatric exam: Present normal affect and normal mood Skin Skin exam: Present warm, dry and intact Lymphatic Lymphatic Findings: no adenopathy Medical Decision Making Ba Inquiry Pt receiving controlled substance: No Ba was queried for this patient: No Vital Signs: 09/18/23 17:25 Temperature 98.7 F Temperature Source Oral Pulse Rate [Left Brachial] 91 H Respiratory Rate 21 Blood Pressure [Left Arm] 128/83 Blood Pressure Mean [Left Arm] 98 Blood Pressure Source [Left Arm] Automatic Cuff Blood Pressure Position [Left Arm] Sitting 02 Sat by Pulse Oximetry 99 Oxygen Delivery Method Room Air
[2023-09-18 18:25] VITALS: BP 128/83; PULSE 91; RESP 21; TEMP 37.1; O2SAT 99
== END 2023-09-18 18:28 | disposition home or self-care (01) ==
PROVIDERS: Emergency Provider Nurse Practitioner Family
DX: J30.9 Allergic rhinitis, unspecified (principal); R51.9 Headache, unspecified; R09.81 Nasal congestion
CPT/HCPCS: 99212; 99214; G0463

== ENCOUNTER 2023-09-23 17:03 | Emergency (ER) | payer OTHER, SELFPAY ==
[2023-09-23 18:15] VITALS: BP 141/83; PULSE 81; RESP 21; TEMP 36.8; O2SAT 100; BMI 28.0
--- NOTE | 2023-09-23 18:25 | EXP.UTC ---
Discharge Plan Disposition Patient Disposition: Home, Self-Care Condition: Good Prescriptions Prescriptions: No Action clonidine HCl 0.1 mg tablet 0.1 mg PO DAILY citalopram 20 mg tablet 20 mg PO DAILY Patient Comments: TAKE ONE HALF (1/2) TABLET FOR FOUR (4) DAYS, THEN TAKE ONCE DAILY buspirone 10 mg tablet 10 mg PO DAILY propranolol 20 mg tablet 20 mg PO DAILY Patient Comments: TAKE ONE (1) TABLET TWICE A DAY BY ORAL ROUTE, FOR PANIC ATTACKS. medroxyprogesterone 150 mg/mL suspension 150 mg IM ONCE Patient Comments: INJECT ONE (1) ML INTRAMUSCULARLY EVERY THREE (3) MONTHS hydroxyzine pamoate 25 mg capsule 25 mg PO DAILY Referrals Follow up/Referrals: Farnaz Thomas APRN [Primary Care Provider] - See instructions Activity Restrictions/Add. Instructions Additional Instructions/Restrictions: *Monitor Temp, Over the counter Motrin or Tylenol as directed/as needed Tylenol every 4 hours and Motrin every 6 hours (as long as your family doctor has told you that you can take it) for fever or pain. and straight to ER if unable to lower temp less than 101.0 after medication given *Warm salt water gargles may help to soothe the throat *Throat Lozenges? *Warm fluids like tea with honey may help to soothe the throat? *Sleep elevated *Humidifier/Vaporizer *Your throat swab was sent for culture. Those results are typically sent to your primary care. Be sure to follow up in 2-3 days with your family doctor/primary care physician if no improvement so they can review those result and treat if necessary. If you don?t have a primary care doctor, I recommend you get one but in the mean time, you will have to return to a walk in clinic Follow up IMMEDIATELY for new or worsening symptoms or no Noticeable improvement over the next 48-72 hours. 911 for difficulty breathing or swallowing Clinical Impressions Clinical Impression: Sore throat (viral) Instructions Patient Instructions: DI for Viral Upper Respiratory Infection -- Adult, Sore Throat Discharge ED Provider: Kay Shore [facility] [place] [facility] [place] General Stated complaint: sore throat Mode of Arrival: Ambulatory Source of Information: Patient Limitations: No Limitations Time Seen by Provider: 09/23/23 18:25 Description of Symptoms (Recalled from Triage Doc. by RN): PATIENT C/O SORE THROAT, COUGH, HEADACHE, WEAKNESS AND CHILLS SINCE YESTERDAY HEENT Symptoms (Recalled from RN notes): Yes Resp Symptoms (Recalled from RN notes): Yes Skin Symptoms (Recalled from RN notes): No MS Symptoms (Recalled from RN notes): No Functional Status (Recalled from RN notes): WNL History of Present Illness Provider Complaint: Patient states that her daughter has had strep throat and she is worried she may have it now States that yesterday she started with sore throat, chills, headache and feeling achy like she does when she has strep throat States today she has continued to feel bad so she came in to get checked Related Data Home Medications Medication Instructions Recorded Confirmed buspirone 10 mg tablet 10 mg PO DAILY 09/23/23 09/23/23 citalopram 20 mg tablet 20 mg PO DAILY 09/23/23 09/23/23 clonidine HCl 0.1 mg tablet 0.1 mg PO DAILY 09/23/23 09/23/23 hydroxyzine pamoate 25 mg capsule 25 mg PO DAILY 09/23/23 09/23/23 medroxyprogesterone 150 mg/mL 150 mg IM ONCE 09/23/23 09/23/23 intramuscular suspension propranolol 20 mg tablet 20 mg PO DAILY 09/23/23 09/23/23 Allergies Allergy/AdvReac Type Severity Reaction Status Date / Time Penicillins Allergy Verified 04/01/22 13:22 sertraline Allergy Verified 09/18/23 17:44 Worker's Comp Is this a Worker's Comp case?: No [facility] Disclaimer: The information contained in this section may have been updated after the patient was seen, as this information can be updated by other users. Social History (Updated 04/01/22 @ 13:18 by Paola Yancey RN) Smoking Status: Former smoker alcohol intake: never current occupational status: unemployed Travel in the last 8 weeks: None ROS Obtained: Yes All systems reviewed & no additional complaints except as documented and Yes Systems reviewed as appropriate & no additional complaints except as documented Constitutional Constitutional: Reports system reviewed and no additional complaints, except as documented, Reports as per HPI, Reports body ache, Reports chills and Reports headache(s) ENT Ears, Nose, Mouth, and Throat: Reports system reviewed and no additional complaints, except as documented, Reports as per HPI, Reports headache(s) and Reports sore throat Cardiovascular Cardiovascular: Reports system reviewed and no additional complaints, except as documented and Reports as per HPI Respiratory Respiratory: Reports system reviewed and no additional complaints, except as documented and Reports as per HPI Gastrointestinal Gastrointestingal: Reports system reviewed and no additional complaints, except as documented and as per HPI Neurologic Neurologic: Reports headache(s) Physical Exam General General appearance: alert and in no apparent distress ENT ENT exam: Present mucous membranes moist Expanded ENT Exam Nose exam: Absent sinus tenderness Throat exam: Present tonsillar erythema Respiratory Respiratory exam: Present normal lung sounds bilaterally; Absent respiratory distress or wheezes Cardiovascular Cardiovascular exam: Present regular rate, normal rhythm and normal heart sounds Neurological Exam Neurological exam: Present alert, oriented X3 and normal gait Medical Decision Making Ba Inquiry Pt receiving controlled substance: No Ba was queried for this patient: No Vital Signs: 09/23/23 18:15 Temperature 98.2 F Temperature Source Oral Pulse Rate [Right Brachial] 81 Respiratory Rate 21 Blood Pressure [Right Arm] 141/83 H Blood Pressure Mean [Right Arm] 102 Blood Pressure Source [Right Arm] Automatic Cuff Blood Pressure Position [Right Arm] Sitting 02 Sat by Pulse Oximetry 100 Oxygen Delivery Method Room Air Lab Data Lab results reviewed: Yes I reviewed the patient's lab results.
[2023-09-23 18:42] VITALS: BP 141/83; PULSE 81; RESP 21; TEMP 36.8; O2SAT 100
[2023-09-23 18:45] LABS: UTC Influenza A Antigen Negative (Negative); UTC Strep Screen (Rapid) Negative (Negative)
[2023-09-23 18:46] LABS: UTC Influenza B Antigen Negative (Negative)
== END 2023-09-23 18:49 | disposition home or self-care (01) ==
PROVIDERS: Emergency Provider Nurse Practitioner; PCP Nurse Practitioner Family
DX: J02.9 Acute pharyngitis, unspecified (principal); R51.9 Headache, unspecified; B34.9 Viral infection, unspecified
CPT/HCPCS: 87804; 87880; 99212; 99213; G0463

== ENCOUNTER 2025-02-20 03:15 | Emergency (ER) | payer OTHER, SELFPAY ==
--- NOTE | 2025-02-20 03:07 | ECG_ITS ---
APPROVED REPORT Exam: Resting ECG HR:70 bpm ECG Measurements Heart Rate 70 AXES [place] 134 P 79 QRSd 101 QRS 81 QT 337 T 76 QTc 358 Conclusion SINUS RHYTHM WITH OCCASIONAL SUPRAVENTRICULAR PREMATURE COMPLEXES NONSPECIFIC T-WAVE ABNORMALITY BORDERLINE ECG UNCONFIRMED REPORT Electronically signed by : YONI KUMAR, 02/21/2025 01:20:25
[2025-02-20 03:14] VITALS: BP 145/89; PULSE 79; RESP 24; TEMP 36.7; O2SAT 100; BMI 22.6
--- OUTSIDE RECORDS SUMMARY | 2025-02-20 03:23 | XMS_ITS | Encounter Summary ---
Author Organization Healthcare Address [address] [place] [address] Care Team Providers Care Meter Changes Records Clerk Name Role Phone Kiya Phillips DO Primary Care Provider [phone]- [phone] Encounter Details Date Type Department Care Team (Late st Contact Info) Description 10/05/2022 Community [facility] [address] [place] [address] Ngoc Mcfadden MD [address] [place] [address] Personal history of pre-term labor (Primary Dx) Social History Tobacco Use Types Packs/Day Years Used Date Smoking Tobacco: Every Day Cigarettes Alcohol Use Standard Drinks/Week Comments Not Currently 0 (1 standard drink = 0.6 oz pur e alcohol) Comments No Sex and Gender Information Value Date Recorded Sex Assigned at Not on file Legal Sex Female 7:40 PM EDT Gender Identity Not on file Sexual Orientation Not on file COVID-19 Exposure Response Date Recorded In the last 10 days, have yo u been in contact with someone who was confirmed or suspected to have Coronavirus/COVID-19? Unable to assess 10/08/2022 5:43 AM EST documented as of this encounter Plan of Treatment Not on file documented as of this encounter Visit Diagnoses Diagnosis Personal history of pre-term labor- Primary documented in this encounter Care Teams Meter Changes Records Clerk Relationship Specialty Start Date End Date Kiya Phillips DO [address] [place] [id number] PCP - General 01/09/21 documented as of this encounter
--- OUTSIDE RECORDS SUMMARY | 2025-02-20 03:23 | XMS_ITS | Encounter Summary ---
Author Organization Healthcare Address [address] [place] [address] Care Team Providers Care Big Data Developer Name Role Phone Kiya Phillips DO Primary Care Provider [phone]- [phone] Encounter Details Date Type Department Care Team (Late st Contact Info) Description 12/16/2022 Community [facility] [address] [place] [address] Ngoc Mcfadden MD [address] [place] [address] Supervision of other high risk pregnancies, second trimester (Primary Dx); Personal history of pre-term labor Social History Tobacco Use Types Packs/Day Years Used Date Smoking Tobacco: Every Day Cigarettes Alcohol Use Standard Drinks/Week Comments Not Currently 0 (1 standard drink = 0.6 oz pur e alcohol) Comments No Sex and Gender Information Value Date Recorded Sex Assigned at Not on file Legal Sex Female 7:40 PM EDT Gender Identity Not on file Sexual Orientation Not on file documented as of this encounter Plan of Treatment Not on file documented as of this encounter Visit Diagnoses Diagnosis Supervision of other high risk pregnancies, second trimester- Primary Personal history of pre-term labor documented in this encounter Care Teams Big Data Developer Relationship Specialty Start Date End Date Kiya Phillips DO [address] [place] [address] PCP - General 01/09/21 documented as of this encounter
--- OUTSIDE RECORDS SUMMARY | 2025-02-20 03:23 | XMS_ITS | Clinical Summary ---
Author Organization Healthcare Address [address] [id number] Care Team Providers Care Marketing Program Coordinator Name Role Phone Sundarkaylyn Kiyaha Du DO Primary Care Provider [phone]- [phone] Allergies No known active allergies Medications sertraline (Zoloft) 50 MG tablet Take 1 tablet (50 mg total) by mouth 1 (one) time each day. 1/2 daily for first week then 1 tab daily 90 tablet 3 04/05/2021 Active nicotine (Nicoderm CQ) 21 MG/24HR patch Place 1 patch on the skin 1 (one) time each day. 30 patch 3 04/04/2021 Active hydrOXYzine pamoate (Vistaril) 25 MG capsule Take 1 capsule (25 mg total) by mouth every 6 (six) hours if needed for anxiety for up to 10 days. 30 capsule 2 04/04/2021 Active oxyCODONE (Roxicodone) 5 MG immediate release tablet Take 1 tablet (5 mg total) by mouth every 6 (six) hours if needed for severe pain. 3 tablet 04/04/2021 Active Active Problems No known active problems Resolved Problems Problem Noted Date Diagnosed Date Resolved Date Anhydramnios in third trimester, fetus 1 04/03/2021 04/04/2021 Social History Tobacco Use Types Packs/Day Years Used Date Smoking Tobacco: Every Day Cigarettes Tobacco Cessation:Ready to Q uit: No; Counseling Given: Yes Alcohol Use Standard Drinks/Week Comments Not Currently 0 (1 standard drink = 0.6 oz pur e alcohol) Comments No Sex and Gender Information Value Date Recorded Sex Assigned at Not on file Legal Sex Female 7:40 PM EDT Gender Identity Not on file Sexual Orientation Not on file Last Filed Vital Signs Vital Sign Reading Time Taken Comments Blood Pressure 113/71 04/04/2021 8:45 AM EDT Pulse 64 04/04/2021 8:45 AM EDT Temperature 36.9 C (98.4 F) 04/04/2021 8:45 AM EDT Respiratory Rate 20 04/03/2021 12:32 PM EDT Oxygen Saturation - - Inhaled Oxygen Concentration - - Weight - - Height - - Body Mass Index - - Plan of Treatment Health Maintenance Due Date Last Done Comments [facility]-Depression Screening 1999 [facility]-HIV Screening 1999 [facility]-Hepatitis C Screening 1999 [facility]-Infant/Child/Adol SDOH Screenings 1999 [facility]-Varicella Vaccines (2 of 2 - 2-dose childhood series) 2003 03/01/2001 HPV Vaccines (1 - 3-dose series) 12/26/2014 [facility]- SDOH Screenings 12/26/2017 [facility]-Adult SDOH Screenings 12/26/2017 [facility]-Pap Smear 12/26/2020 [id number] Vaccine (2 - season) 2024 12/13/2020 [facility]-Influenza Vaccine (#1) 04/02/202509/10, 08/08/2019, 09/10/2017 [facility]-DTaP,Tdap,and Td Vaccines (9 - Td or Tdap) 12/30/2032 12/30/2022, 12/20/2019, 04/19/2012, Additional history exists [facility]-Zoster Vaccines (1 of 2) 12/26/2049 03/01/2001 [facility]-Pneumococcal Vaccine: Pediatrics (0 to 5 Years) and At-Risk Patients (6 to 49 Years) Aged Out 11/17/2000 No longer eligible based on patient's age to complete this topic [facility]-Hepatitis B Vaccines Completed 002, 03/01/2001, 1999 [facility]-HIB Vaccines Completed 04/30/2005, , 09/03/2000, Additional history exists [facility]-IPV Vaccines Completed 04/30/2005, , 09/03/2000, Additional history exists [facility]-Hepatitis A Vaccines Completed 09/10/2017, 10/01 [facility]-Rotavirus Vaccines Aged Out No lo nger eligible based on patient's age to complete this topic Insurance [facility] MEDICAID Advance Directives * Full Code (Latest Code Status on File) Date Activated Date Inactivated Comments 04/03/2021 12:24 PM 04/04/2021 3:23 PM Question Answer Comments Patient has decision-making capacity? Yes Care Teams Marketing Program Coordinator Relationship Specialty Start Date End Date Kiya Phillips DO [address] [place] [id number] PCP - General 01/09/21
--- OUTSIDE RECORDS SUMMARY | 2025-02-20 03:24 | XMS_ITS | Data Portability ---
Author Organization [facility] Address [address] [place] [address] Assessment Encounter Date Assessment Date Assessment LastModified by Organization Details LastModified Time 08/12/2023 08/12/2023 Reproductive life plan discussed. Patient does not plan to have children in the future. control offered. Patient accepted. Number of sexual partners: _1 Patient is having protected sex. Domestic abuse counseling done. [facility]liers for domestic abuse centers posted in patient waiting rooms and bathrooms. Not available 08/12/2023 12:50:31 07/05/2024 07/05/2024 Reproductive life plan discussed. Patient does not plan to have children in the future. control offered. Patient accepted. Number of sexual partners: _ undisclosed Patient is having unprotected sex. [facility] for domestic abuse centers posted in patient waiting rooms and bathrooms. [email or web address] Not available 07/05/2024 15:04:11 Plan of Treatment Reminders Order Date Submit Date Provider Last Modified By Organization Details Last Modified Time Details Appointments None recorded. Lab urinalysis, dipstick 2023 024 [email or web address] [place] [facility], [address] [facility] , [place], [address], 14:55:53 TSH, ultra-sensi tive, serum 2023 024 JOINER [facility], [address], [address], [place], [address], 4 10:12:40 CBC w/ auto diff 2023 024 JUNI [facility], [address], [place], [place], [address], 4 10:12:38 CMP, serum or plasma 2023 024 JUNI [facility], [address], [place], [place], [address], 4 10:12:39 drug screen, 14 drugs (detectimed ), urine 2023 024 JUNI [facility], [address], [place], [place], [address], 4 10:18:21 Referral mental health clinic referral - pt interested in therapist and med management. 2023 024 [email or web address] Not available 4 09:43:07 Procedures None recorded. Surgeries None recorded. Imaging None recorded. Medication Orders Depo-Quebracho Tanner a 150 mg/mL intramuscul ar suspension [address] [facility], [address] [place], [address], 5 10:09:51 Mirena 21 mcg/24 hr (up to 8 years) 52 mg intrauterin e device [address] [facility], [address] [place], [address], 4 14:55:53 Depo-Quebracho Tanner a 150 mg/mL intramuscul ar suspension 2023 024 [email or web address] Not available 4 15:07:17 citalopram 20 mg tablet 2023 024 [facility], [address] [place] [address], [address], 4 17:19:46 [facility] 20 [facility] [address] [place] [address], [address], 4 07:33:58 medroxyprog esterone 150 mg/mL intramuscul ar suspension [address] [facility] [address], [address] [place], [address], 4 14:09:15 Depo-Quebracho Tanner a 150 mg/mL intramuscul ar suspension [address] [facility] [address], [address] [place], [address], 4 14:09:15 Patient TargetsNo targets recorded. Patient Instructions Encounter Date Encounter Id Patient Instructions Last Modified By Organization Details Last Modified Time 05/20/2023 [id number] F/U as scheduled for next Depo injection Pick Depo up at pharmacy and bring to office with you. Encouraged to get 30 min of sunlight per day Encouraged to increase weight bearing exercise and calcium / vit D intake Call with questions or concerns. Not available 05/20/2023 12:37:42 08/12/2023 [id number] Doing well with depo and desires to continue Rto 12 wks for next injection Encourage Ca/Vit D supplement [email or web address] Not available 08/12/2023 12:50:37 08/27/2023 [id number] of note: will hold citalopram since pt was able to get appt with mental health soon. [email or web address] Not available 08/30/2023 10:58:08 07/05/2024 [id number] learning about control: intrauterine device (iud) [email or web address] Not available 07/05/2024 14:55:53 learning about control: the implant [email or web address] Not available 07/05/2024 14:55:53 Rto for Mirena insertion Increase fluids Avoid soda and tea Not available 07/05/2024 15:04:24 Reason for Referral Mental Health Clinic Referra l for Posttraumatic stress disorder pt interested in therapist and med management. Referring Physician: Farnaz Thomas, Family Medicine, Encounter Date: 08/27/2023 Results Created Date Observation Date Name Description Value Unit Range Abnormal Flag Note LastModifiedBy Organization Detail LastModifiedTime 08/27/19 24 08/28/2023 CBC WITH DIFFE RENTI AL/PL ATELE T WBC 14.0 x10e3 /uL 3.4-10 .8 above high normal Not Available [facility] ([facility]) [address] [place], [address], 08/28/2023 10:12:38 08/27/19 24 08/28/2023 CBC WITH DIFFE RENTI AL/PL ATELE T RBC 3.82 x10e6 /uL 3.77-5 .28 Not Available [facility] ([facility]) [address] [place], [address], 08/28/2023 10:12:38 08/27/19 24 08/28/2023 CBC WITH DIFFE RENTI AL/PL ATELE T hemoglobin 13.4 g/dL 11.1-1 5.9 Not Available [facility] ([facility]) [address] [place], [address], 08/28/2023 10:12:38 08/27/19 24 08/28/2023 CBC WITH DIFFE RENTI AL/PL ATELE T hematocrit 38.0 % 34.0-4 6.6 Not Available [facility] ([facility]) [address] [place], [address], 08/28/2023 10:12:38 08/27/19 24 08/28/2023 CBC WITH DIFFE RENTI AL/PL ATELE T MCV 100 fL 79-97 above high normal Not Available [facility] ([facility]) [address] [place], [address], 08/28/2023 10:12:38 08/27/19 24 08/28/2023 CBC WITH DIFFE RENTI AL/PL ATELE T MCH 35.1 pg 26.6-3 3.0 above high normal Not Available [facility] ([facility]) [address] [facility], [place], [address], 08/28/2023 10:12:38 08/27/19 24 08/28/2023 CBC WITH DIFFE RENTI AL/PL ATELE T MCHC 35.3 g/dL 31.5-3 5.7 Not Available [facility] ([facility]) [address] [facility], [place], [address], 08/28/2023 10:12:38 08/27/19 24 08/28/2023 CBC WITH DIFFE RENTI AL/PL ATELE T RDW 11.8 % 11.7-1 5.4 Not Available [facility] ([facility]) [address] [facility], [place], [address], 08/28/2023 10:12:38 08/27/19 24 08/28/2023 CBC WITH DIFFE RENTI AL/PL ATELE T platelets 378 x10e3 /uL 150-45 0 Not Available [facility] ([facility]) [address] [facility], [place], [address], 08/28/2023 10:12:38 08/27/19 24 08/28/2023 CBC WITH DIFFE RENTI AL/PL ATELE T neutrophils 70 % not estab. Not Available [facility] ([facility]) [address] [facility], [place], [address], 08/28/2023 10:12:38 08/27/19 24 08/28/2023 CBC WITH DIFFE RENTI AL/PL ATELE T lymphs 24 % not estab. Not Available [facility] ([facility]) [address] [facility], [place], [address], 08/28/2023 10:12:38 08/27/19 24 08/28/2023 CBC WITH DIFFE RENTI AL/PL ATELE T monocytes 3 % not estab. Not Available [facility] ([facility]) [address] [facility], [place], [address], 08/28/2023 10:12:38 08/27/19 24 08/28/2023 CBC WITH DIFFE RENTI AL/PL ATELE T eos 2 % not estab. Not Available [facility] ([facility]) [address] [facility], [place], [address], 08/28/2023 10:12:38 08/27/19 24 08/28/2023 CBC WITH DIFFE RENTI AL/PL ATELE T basos 0 % not estab. Not Available [facility] ([facility]) [address] [facility], [place], [address], 08/28/2023 10:12:38 08/27/19 24 08/28/2023 CBC WITH DIFFE RENTI AL/PL ATELE T immature cells LABORATORY CUREMAN Not Available [facility] ([facility]) [address] [place], [address], 08/28/2023 10:12:38 08/27/19 24 08/28/2023 CBC WITH DIFFE RENTI AL/PL ATELE T neutrophils (absolute) 9.7 x10e3 /uL 1.4-7. 0 above high normal Not Available [facility] ([facility]) [address] [place], [address], 08/28/2023 10:12:38 08/27/19 24 08/28/2023 CBC WITH DIFFE RENTI AL/PL ATELE T lymphs (absolute) 3.4 x10e3 /uL 0.7-3. 1 above high normal Not Available [facility] ([facility]) [address] [place], [address], 08/28/2023 10:12:38 08/27/19 24 08/28/2023 CBC WITH DIFFE RENTI AL/PL ATELE T monocytes(ab solute) 0.4 x10e3 /uL 0.1-0. 9 Not Available [facility] ([facility]) [address] [facility], [place], [address], 08/28/2023 10:12:38 08/27/19 24 08/28/2023 CBC WITH DIFFE RENTI AL/PL ATELE T eos (absolute) 0.3 x10e3 /uL 0.0-0. 4 Not Available [facility] ([facility]) [address] [facility], [place], [address], 08/28/2023 10:12:38 08/27/19 24 08/28/2023 CBC WITH DIFFE RENTI AL/PL ATELE T baso (absolute) 0.1 x10e3 /uL 0.0-0. 2 Not Available [facility] ([facility]) [address] [facility], [place], [address], 08/28/2023 10:12:38 08/27/19 24 08/28/2023 CBC WITH DIFFE RENTI AL/PL ATELE T immature granulocytes 1 % not estab. Not Available [facility] ([facility]) [address] [facility], [place], [address], 08/28/2023 10:12:38 08/27/19 24 08/28/2023 CBC WITH DIFFE RENTI AL/PL ATELE T immature grans (abs) 0.1 x10e3 /uL 0.0-0. 1 Not Available [facility] ([facility]) [address] [place], [address], 08/28/2023 10:12:38 08/27/19 24 08/28/2023 CBC WITH DIFFE RENTI AL/PL ATELE T NRBC LABORATORY CUREMAN Not Available [facility] ([facility]) [address] [facility], [place], [address], 08/28/2023 10:12:38 08/27/19 24 08/28/2023 CBC WITH DIFFE NIHARIKA AL/PL DAISYLE T hematology comments: LABORATORY CUREMAN Not Available [facility] ([facility]) [address] [facility], [place], [address], 08/28/2023 10:12:38 08/27/19 24 08/28/2023 COMP. METAB OLIC PANEL (14) glucose 91 mg/dL 70-99 Not Available [facility] ([facility]) [address] [place], [address], 08/28/2023 10:12:39 08/27/19 24 08/28/2023 COMP. METAB OLIC PANEL (14) BUN 17 mg/dL 6-20 Not Available [facility] ([facility]) [address] [facility], [place], [address], 08/28/2023 10:12:39 08/27/19 24 08/28/2023 COMP. METAB OLIC PANEL (14) creatinine 0.92 mg/dL 0.57-1 .00 Not Available [facility] ([facility]) [address] [facility], [place], [address], 08/28/2023 10:12:39 08/27/19 24 08/28/2023 COMP. METAB OLIC PANEL (14) eGFR 90 mL/mi n/1.7 3 >59 Not Available [facility] ([facility]) [address] [place], [address], 08/28/2023 10:12:39 08/27/19 24 08/28/2023 COMP. METAB OLIC PANEL (14) BUN/creatini ne ratio 18 9-23 Not Available [facility] ([facility]) [address] [place], [address], 08/28/2023 10:12:39 08/27/19 24 08/28/2023 COMP. METAB OLIC PANEL (14) sodium 140 mmol/ L 134-14 4 Not Available [facility] ([facility]) [address] [facility], [place], [address], 08/28/2023 10:12:39 08/27/19 24 08/28/2023 COMP. METAB OLIC PANEL (14) potassium 4.5 mmol/ L 3.5-5. 2 Not Available [facility] ([facility]) [address] [place], [address], 08/28/2023 10:12:39 08/27/19 24 08/28/2023 COMP. METAB OLIC PANEL (14) chloride 104 mmol/ L 96-106 Not Available [facility] ([facility]) [address] [place], [address], 08/28/2023 10:12:39 08/27/19 24 08/28/2023 COMP. METAB OLIC PANEL (14) carbon dioxide, total 19 mmol/ L 20-29 below low normal Not Available [facility] ([facility]) [address] [place], [address], 08/28/2023 10:12:39 08/27/19 24 08/28/2023 COMP. METAB OLIC PANEL (14) calcium 10.0 mg/dL 8.7-10 .2 Not Available [facility] ([facility]) [address] [place], [address], 08/28/2023 10:12:39 08/27/19 24 08/28/2023 COMP. METAB OLIC PANEL (14) protein, total 7.9 g/dL 6.0-8. 5 Not Available [facility] ([facility]) [address] [facility] [place], [address], 08/28/2023 10:12:39 08/27/19 24 08/28/2023 COMP. METAB OLIC PANEL (14) albumin 4.6 g/dL 4.0-5. 0 Not Available [facility] ([facility]) [address] [facility] [place], [address], 08/28/2023 10:12:39 08/27/19 24 08/28/2023 COMP. METAB OLIC PANEL (14) globulin, total 3.3 g/dL 1.5-4. 5 Not Available [facility] ([facility]) [address] [facility], [place], [address], 08/28/2023 10:12:39 08/27/19 24 08/28/2023 COMP. METAB OLIC PANEL (14) A/G ratio 1.4 1.2-2. 2 Not Available [facility] ([facility]) [address] [facility], [place], [address], 08/28/2023 10:12:39 08/27/19 24 08/28/2023 COMP. METAB OLIC PANEL (14) bilirubin, total 0.8 mg/dL 0.0-1. 2 Not Available [facility] ([facility]) [address] [facility], [place], [address], 08/28/2023 10:12:39 08/27/19 24 08/28/2023 COMP. METAB OLIC PANEL (14) alkaline phosphatase 106 IU/L 44-121 Not Available [facility] ([facility]) [address] [facility], [place], [address], 08/28/2023 10:12:39 08/27/19 24 08/28/2023 COMP. METAB OLIC PANEL (14) AST (SGOT) 16 IU/L 0-40 Not Available [facility] ([facility]) [address] [facility], [place], [address], 08/28/2023 10:12:39 08/27/19 24 08/28/2023 COMP. METAB OLIC PANEL (14) ALT (SGPT) 13 IU/L 0-32 Not Available [facility] ([facility]) [address] [facility], [place], [address], 08/28/2023 10:12:39 08/27/19 24 08/28/2023 TSH RFX ON ABNOR MAL TO FREE T4 TSH 0.167 uIU/m L 0.450- 4.500 below low normal Not Available [facility] ([facility]) [address] [facility], [place], [address], 08/28/2023 10:12:39 08/27/19 24 08/28/2023 TSH RFX ON ABNOR MAL TO FREE T4 T4,free (direct) 1.32 NG/dL 0.82-1 .77 Not Available [facility] ([facility]) [address] [facility], [place], [address], 08/28/2023 10:12:39 08/27/19 24 09/04/2023 COMPL IANCE DRUG RAMAN SIS, UR summary report (summary) FINAL ===== ===== ===== ===== ===== ===== ===== ===== ===== ===== ===== ===== ===== === TOXAS SURE COMP DRUG RAMAN SIS,U R ===== ===== ===== ===== ===== ===== ===== ===== ===== ===== ===== ===== ===== === Test Resul t Flag Units Drug Prese nt Gabap entin PRESE NT Levet irace munoz PRESE NT Venla faxin e PRESE NT Desme thylv enlaf axine PRESE NT Desme thylv enlaf axine is an expec nina metab olite of venla faxin e. Aripi prazo le PRESE NT Leon xyzin e PRESE NT ===== ===== ===== ===== ===== ===== ===== ===== ===== ===== ===== ===== ===== === Test Resul t Flag Units Ref Range Creat inine 101 mg/dL >=20 ===== ===== ===== ===== ===== ===== ===== ===== ===== ===== ===== ===== ===== === Decla red Medic ation s: Medic ation list was not provi ded. ===== ===== ===== ===== ===== ===== ===== ===== ===== ===== ===== ===== ===== === For clini joseline consu ltati on, pleas e call . ===== ===== ===== ===== ===== ===== ===== ===== ===== ===== ===== ===== ===== === Not Available [facility] ([facility]) [address] [facility], [place], [address], 09/04/2023 10:18:21 08/27/19 24 09/04/2023 COMPL IANCE DRUG RAMAN SIS, UR pdf . Not Available [facility] ([facility]) [address] [facility], [place], [address], 09/04/2023 10:18:21 07/05/20 24 07/05/2024 urina lysis , dipst ick Leukocytes Small Not Available [facility] [facility] [address] [facility] , [place], [address], 07/05/2024 14:53:39 07/05/20 24 07/05/2024 urina lysis , dipst ick Nitrite negati ve Not Available [facility] [address] [facility] , [place], [address], 07/05/2024 14:53:39 07/05/20 24 07/05/2024 urina lysis , dipst ick Urobilinogen .2 Not Available [facility] [address] [place] [address] , [place], [address], 07/05/2024 14:53:39 07/05/20 24 07/05/2024 urina lysis , dipst ick Protein Negati ve Not Available [facility] [address] [place] [address] , [place], [address], 07/05/2024 14:53:39 07/05/20 24 07/05/2024 urina lysis , dipst ick pH 5.0 Not Available [facility]/[address] , [place], [address], 07/05/2024 14:53:39 07/05/20 24 07/05/2024 urina lysis , dipst ick Blood Negati ve Not Available [facility]/[address] , [place], [address], 07/05/2024 14:53:39 07/05/20 24 07/05/2024 urina lysis , dipst ick Specific [place] 1.[address] [facility] [address] [place] [address] , [place], [address], 07/05/2024 14:53:39 07/05/20 24 07/05/2024 urina lysis , dipst ick Ketone Modera te Not Available [facility]/[address] , [place], [address], 07/05/2024 14:53:39 07/05/20 24 07/05/2024 urina lysis , dipst ick Bilirubin Negati ve Not Available [facility] [address] [place] [address] [place], [address], 07/05/2024 14:53:39 07/05/20 24 07/05/2024 urina lysis , dipst ick Glucose Negati ve Not Available [facility] [address] [place] [address] , [place], [address], 07/05/2024 14:53:39 07/05/2007/05/2024 urina lysis , dipst ick Appearance Clear Not Available [facility] [address] [place] [address] , [place], [address], 07/05/2024 14:53:39 07/05/20 24 07/05/2024 urina lysis , dipst ick Color Brown Not Available [facility] [address] [place] [address] , [place], [address], 07/05/2024 14:53:39 Result Notes None recorded. Problems Name Problem SNOMED Code Status Onset Date Resolution Date Notes Provider Name and Address Organization Details Recorded Time Insuffic ient care 56121564527 09 Completed no care 12-24 weeks Infusion Nurse [address] [address], [place], [address] , [facility] 0 10:36:39 Contrace ption care Completed Nuvaring Infusion Nurse [address], [address] , [facility] 0 10:36:39 growth restrict ion [id number] Completed 35 wk EFW 6%tile, UAD 3.24 [x] UK 01/17: EFW 4# 3 oz, 3%tile, AC < 1%; BPP 03/09: 2x/wk NST, del 37-38 wks Infusion Nurse [address], [address] , [facility] 0 10:36:39 Poor growth affectin g manageme nt [id number] Completed 01/29/2020 Infusion Nurse [facility] [address] [place] [address] [place], [address] [place] [address] , [place] - [facility] 0 10:36:51 spontane ous labor with delivery [id number] Completed 01/29/2020 Infusion Nurse [facility] Suki Sheets, [place], [address] [place] [address] , [facility] 0 10:37:05 COVID-19 [id number] Completed 01/29/2020 Removal Reason: Problem added by user [email or web address] from the COVID-19 watch flag Infusion Nurse [facility] Suki Sheets, [place], [address] [place] [address] , [place] - [facility] 0 10:34:59 section followin g previous section [id number] Completed x 2 - 2016 & 2019 Infusion Nurse [facility] Suki Sheets, [place], [address] [place] [address] , [facility] 1 14:25:55 Contrace ption care Completed ParaGard Infusion Nurse [facility] Suki Sheets, [place], [place], [address] [place] [address] , [facility] 1 14:25:55 Immuniza tion due [id number] Completed [ ] flu [ ] Tdap @ 30 wks Infusion Nurse [facility] Suki Sheets, [place], [address] [place] [address] , [facility] 1 14:25:54 Antenata l screenin g Completed Declined genetic testing Infusion Nurse [facility] Suki Sheets, [place], [place], [address] [place] [address] , [facility] 1 14:25:54 Urinary tract infectio n in pregnanc y [id number] Completed + E. Coli 03/12: Urine culture no growth Infusion Nurse [facility] Suki Sheets, [place], [place], [address] [place] [address] , [place] - [facility] 1 14:25:54 Past pregnanc y history of prematur e delivery [id number] Active 32.4wks anomalie s Infusion Nurse [facility] Suki Sheets, [place], [address] [place] [address] , [place] - [facility] 3 15:46:02 Past pregnanc y history of prematur e delivery 589287333 Completed Infusion Nurse [facility] Suki Sheets, [place], [address] [place] [address] , [facility] 1 14:25:54 Past pregnanc y history of prematur e delivery 580924047 Completed 32.4wks anomalie s Infusion Nurse [address], [place], [address] , [facility] 3 15:46:02 Contrace ption care manageme nt Completed depo Infusion Nurse [address], [place], [address] , [facility] 3 15:46:02 Antenata l screenin g Completed [ ]Mat21-d eclined 10/08/22 [ ]AFP-dec lined 10/08/22 [ ]CF-decl ined 10/08/22 Infusion Nurse [address] [address], [place], [address] , [facility] 3 15:46:02 Active immuniza tion Completed [-]Covid -decline d [x]Tdap- desires 12/17/22 [x]Flu-c ompleted Infusion Nurse [address], [place], [address] , [facility] 3 15:46:02 Recreati onal drug user 584830622 Completed uses THC + at ob hx Infusion Nurse [address] [address], [place], [address] , [facility] 3 15:46:01 Red blood cell finding 125541244 Completed immature red blood cells wbc slightly elevated Infusion Nurse [address], [place], [address] , [facility] 3 15:46:02 Past pregnanc y history of section 464722952 Completed 05/20/2023 Arabella Glass, KEVIN [address], [place], [address] , [facility] 3 12:38:28 Supervis ion of high risk pregnanc y with history of previous section done [id number] 106 Completed 2016 abruptio n 38 weeks after SROM: C-sectio n: Plans rCS; schedule d 02/08 with KRA Infusion Nurse [address], [place], [address] , [place] - [facility] 0 10:36:39 Supervis ion of high risk pregnanc y with history of previous section done [id number] 106 Completed 201601/29/2020 abruptio n 38 weeks after SROM: C-sectio n: Plans rCS; schedule d 02/08 with RADHA Arabella Glass, 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 [address], [place], [address] , [place] - [facility] 3 12:38:40 Anemia 101234509 Completed 201609/10/2022 Arabella Glass, 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 [address], [place], [address] , [place] - [facility] 3 13:41:51 Postpart um hemorrha ge 16241507 Completed 201609/29/2017 Tameka Sanders null, [place] - [facility] 8 13:13:33 Postpart um depressi on [id number] Completed 201609/29/2017 Tameka Marilyn null, [place] - [facility] 8 13:13:25 Acquired scoliosi s 764428734 Active 2016 Esperanza Mejia null, [place] - [facility] 3 15:38:13 Herpes simplex 39016697 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, HSV 1 Esperanza Mejia null, [place] - [facility] 3 15:38:13 Herpes simplex 85974015 Completed 2017 oral, HSV 1 Arabella Glass, 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 [address], [place], [address] , [place] - [facility] 3 19:54:15 Uses depot contrace ption 358623906 Completed 201702/04/2018 Removal Reason: stopped Arabella Glass, 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 [address], [place], [address] , [place] [facility] 3 12:39:03 Antenata l screenin g Completed 2018 FTS performe d NT 1.7mm; serum WNL [-] AFP missed [facility] [address], [place], [address] , [place] [facility] 0 10:36:39 Active or passive immuniza tion Completed 2018 Flu 08/08/19 [x] Tdap-/ [facility] [address], [place], [address] , [place] [facility] 0 10:36:39 Substanc e abuse [id number] Completed 2018 + THC @ OBHx & OBPE [=+] UDS 12/20/19 THC w Low Cr Repeat 01/02 THC: ref to PC for counseli ng [facility] [address], [place], [address] , [place] [facility] 0 10:36:39 Maternal drug use 01949971 Completed 201804/28/2021 UDS + THC [facility] [address], [place], [address] , [place] [facility] 1 14:26:40 Maternal drug use 97347518 Completed 2018 UDS + THC Ngoc Mcfadden MD [address], [place], [address] , [place] [facility] 0 15:17:53 Maternal drug use 99498342 Completed 2018 UDS + THC Infusion Nurse [facility] [address], [place], [address] , [place] [facility] 1 14:25:55 Moderate hypereme sis gravidar [id number] Completed 2018 19# loss in 6 days; Received IVF in office; Rx Zofran [facility] [address], [place], [address] , [place] [facility] 0 10:36:39 Postpart um care Completed 201912/09/2020 Veronica [place], [place] - [facility] 1 08:05:25 High risk pregnanc y 24807704 Completed 202004/28/2021 Hx of abruptio n and PTD 2nd pregnanc y in 1 yr [facility] [address], [place], [address] , [facility] - [facility] 1 14:26:23 Supervis ion of high risk pregnanc y with history of previous section Completed 202004/28/2021 In[facility] Nurse [facility] [address], [place], [address] , [place] [facility] 1 14:26:47 Pregnanc y 51837640 Completed 202012/09/2020 [facility] Nurse [facility] [address], [place], [address] , [place] [facility] 3 15:46:06 High risk pregnanc y 92977072 Completed 2020 Hx of abruptio n and PTD 2nd pregnanc y in 1 yr [facility] [address], [place], [address] , [place] [facility] 14:25:54 High risk pregnanc y due to history of labor 208335472 Completed 2020 Delivery @ 36 wks [facility] [address], [place], [address] , [place] [facility] 14:25:54 High risk pregnanc y due to history of labor 015411977 Completed 202004/28/20212019 Delivery @ 36 wks [facility] [address], [place], [address] , [place] [facility] 14:26:36 Depressi ve disorder 13563285 Completed 2020 [ ] Pursue care Smokes THC - urged to quit [facility] [address], [place], [address] , [place] [facility] 14:25:54 Depressi ve disorder 11853182 Completed 202009/10/2022 [ ] Pursue care Smokes THC - urged to quit Arabella Glass APRN [address], [place], [address] , [place] [facility] 3 13:42:04 Maternal tobacco abuse 232259228 Completed 2020 1/4 PPD [facility] [address], [place], [address] , [place] [facility] 1 14:25:55 Maternal tobacco abuse 050035756 Completed 202005/20/2023 1/4 PPD, encourag ed cessatio n Arabella Quan, 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 [address], [place], [place], [address] , [place] [facility] 3 12:38:51 Insuffic ient care [id number] 09 Completed 2020 [facility] [address], [place], [address] , [place] [facility] 1 14:25:54 Insuffic ient care [id number] 09 Completed 202004/28/2021 Arabella Quan, 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 [address], [place], [place], [address] , [place] [facility] 3 12:38:47 Maternal tobacco abuse 378216175 Completed 2020 1/4 PPD, encourag ed cessatio n [facility] [address], [place], [address] , [place] [facility] 3 15:46:02 Lower urinary tract infectio us disease 4778271 Completed 2020 [facility] [address], [place], [place], [address] , [place] [facility] 1 14:25:55 Lower urinary tract infectio us disease 3589431 Completed 202009/10/2022 Arabella 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, 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 [address], [place], [address] , [place] [facility] 3 13:42:08 Oligohyd ramnios 90942176 Completed 202004/28/2021 anyhydra minos [facility] [address], [place], [address] , [place] [facility] 1 14:26:44 anomaly present in specimen [id number] Completed 202004/28/2021 Suspecte d lethal anomaly [facility] [address], [place], [address] , [place] [facility] 1 14:26:18 Oligohyd ramnios 77940650 Completed 06/10/ 2021 anyhydra minos [facility] [address], [place], [address] , [place] [facility] 1 14:25:55 anomaly present in specimen [id number] Completed 2020 Suspecte d lethal anomaly [facility] [address], [place], [address] , [place] [facility] 1 14:25:55 Pregnanc y 25435293 Completed 202202/04/2023 [facility] [address], [place], [address] , [place] [facility] 3 15:46:06 Supervis ion of high risk pregnanc y with history of previous section done [id number] 106 Completed 2022 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 [facility] [address], [place], [address] , [place] [facility] 3 15:46:02 Supervis ion of high risk pregnanc y with history of previous section done [id number] 106 Completed 202205/20/2023 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 Arabella Glsas APRN [address], [place], [address] , [place] [facility] 3 12:38:40 Late entry into care 017076352 Completed 2022 first appt 16w3d [facility] [address], [place], [address] , [place] [facility] 3 15:46:02 Late entry into care 479831903 Completed 202205/20/2023 first appt 16w3d Arabella Glass APRN [address], [place], [address] , [place] [facility] 3 12:38:35 Insuffic ient care [id number] 09 Completed 2022 [facility] [address], [place], [address] , [place] [facility] 3 15:46:02 Insuffic ient care 56005066341 09 Completed 202205/20/2023 Arabella Glass, 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 [address], [place], [address] , [place] [facility] 3 12:38:47 Uses depot contrace ption 226975822 Active 2022 Arabella Galss, 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 [address], [place], [address] , [place] [facility] 3 12:39:03 Posttrau matic stress disorder 60743717 Active 2023 panic attacks Farnaz Thomas, 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 [address], [place], [address] , [place] [facility] 4 08:44:16 Abnormal urine odor 8220880 Active 2023 Sherie Oswald, 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 [address], [place], [address] , [place] [facility] 4 14:54:17 Problem Notes None recorded. Procedures Surgical History Date Name Laterality Status Provider Name and Address Organization Details Recorded Time 5 IUD Insertion (Mirena) cancelled Mayela Nails [place] - [facility] 12/18/2024 09:29:28 5 IUD Insertion (Mirena) cancelled Mayela Nails [place] [facility] 08/09/2024 16:12:40 3 delivery completed Mayela Orr [place] [facility] 08/27/2023 08:59:23 3 OB Ultrasound Summary completed Monika Jackman [place] - [facility] 12/17/2022 13:41:25 3 Date of Last Pap Smear completed [facility] [address], [place], [address], [place] [facility] 11/26/2022 15:09:40 3 OB Ultrasound Summary completed Monika Jackman [place] [facility] 09/10/2022 14:19:49 1 OB Ultrasound Summary [place]ika [place] [facility] 03/12/2021 09:25:44 1 OB Ultrasound Summary [place]ika [place] [facility] 01/09/2021 10:25:55 1 OB Ultrasound Summary completed Rosario Patel [place] [facility] 12/18/2020 13:26:38 0 section completed Veronica Hyman [place] [facility] 12/09/2020 10:04:11 0 OB Ultrasound Summary [place] Rosario Patel [place] [facility] 01/15/2020 15:20:22 0 OB Ultrasound Summary completed Monika Jackman [place] [facility] 11/03/2019 15:23:45 9 OB Ultrasound Summary completed [place]ario Patel [place] [facility] 07/11/2019 10:19:06 7 delivery completed Veronica Hyman [place] [facility] 12/09/2020 10:03:32 Imaging Results None recorded. Procedure Notes None recorded. Medical Equipment None Reported. Allergies Allergen ID Allergen Name Allergen Category Reaction Reaction Severity Criticality Documentation Date Start Date Code Code System Note Provider Name and Address Organization Details Recorded Time 399230 grapefrui t extract food anaphylax is moderate Not available 02/03/20232019 92027 3 RxNorm Esperanza Mejia null, [place] - [facility] 3 15:37:32 696994 sertralin e medicatio n hives moderate Not available 08/27/2023 64468 RxNorm Mayela Orr null, [place] - [facility] 4 08:57:37 75229 peanut allergeni c extract food,medi cation Not available Not available Not available 03/26/2017 [address] null, [place] - [facility] 7 16:08:27 Medications Name Sig Start Date Stop Date Status Note LastModified by Organization Details LastModified Time amoxicill in 500 mg capsule 02/04 completed Not Available Not Available Not Available Mirena 21 mcg/24 hr (up to 8 years) 52 mg intrauter ine device TAKE ONE (1) DEVICE BY INTRAUTE RINE ROUTE. active Not Available Not Available No t Available Mapap Extra Strength 500 mg tablet 09/29 completed Not Available Not Available Not Available nystatin 100,000 unit/mL oral suspensio n 03/03 completed Not Available Not Available Not Available Abreva 10 % topical cream Apply 5x daily until healed, start at first sign of symptoms 10/25 completed Not Available Not Available Not Available clonidine HCl 0.1 mg tablet Take 1 tablet twice a day by oral route as needed. 07/05 completed Not Available Not Available Not Available acetamino phen 325 mg tablet 09/10 completed Not Available Not Available Not Available venlafaxi ne ER 75 mg capsule,e xtended release 24 hr 08/12 completed Not Available Not Available Not Available Vitamin B-6 25 mg tablet 03/26 completed Not Available Not Available Not Available ropinirol e 1 mg tablet TAKE 1 TABLET BY MOUTH EVERY DAY AT BEDTIME 08/30 completed effected UDS (?) Not Available Not Available Not Available prednisol one sodium phosphate 15 mg/5 mL (3 mg/mL) oral solution 08/12 completed Not Available Not Available Not Available cetirizin e 10 mg tablet Take 1 tablet every day by oral route. 09/10 completed Not Available Not Available Not Available azithromy juan 250 mg tablet TAKE 2 TABLETS BY MOUTH ON DAY 1, AND THEN TAKE 1 TABLET BY MOUTH ONCE A DAY ON DAY 2 THROUGH DAY 5 09/10 completed Not Available Not Available Not Available ibuprofen 800 mg tablet Take 800 mg by oral route. 12/09 completed Not Available Not Available Not Available nystatin 100,000 unit/gram topical ointment 08/12 completed Not Available Not Available Not Available fluconazo le 150 mg tablet 02/04 completed Not Available Not Available Not Available hydrocodo ne 5 mg-acetam inophen 325 mg tablet 03/26 completed Not Available Not Available Not Available Nystop 100,000 unit/gram topical powder 08/12 completed Not Available Not Available Not Available phenazopy ridine 200 mg tablet 02/04 completed Not Available Not Available Not Available ondansetr on HCl 4 mg tablet Take 0.5 tablets 4 times a day by oral route as directed for 7 days. 12/09 completed Not Available Not Available Not Available prednison e 20 mg tablet TAKE 1 TABLET BY MOUTH TWICE DAILY 09/10 completed Not Available Not Available Not Available venlafaxi ne ER 150 mg capsule,e xtended release 24 hr TAKE 1 CAPSULE BY MOUTH IN THE MORNING ONCE DAILY 08/27 completed irritabl e Not Available Not Available Not Available penicilli n V potassium 500 mg tablet TAKE 1 TABLET BY MOUTH 4 TIMES DAILY UNTIL GONE 08/12 completed Not Available Not Available Not Available clotrimaz ole 1 % vaginal cream 03/26 completed Not Available Not Available Not Available metronida zole 500 mg tablet active Not Available Not Available No t Available acyclovir 400 mg tablet Take 2 tablets every 12 hours by oral route for 5 days. 09/29 completed Not Available Not Available Not Available sulfameth oxazole 800 mg-trimet hoprim 160 mg tablet TAKE 1 TABLET BY MOUTH TWICE DAILY FOR 10 DAYS 09/10 completed Not Available Not Available Not Available bupropion HCl SR 100 mg tablet,12 hr sustained -release 07/04 completed Not Available Not Available Not Available dextrose 5 % and lactated ringers intraveno us solution Inject 2000 mL by intraven ous route as directed for 1 day. 11/02 completed IV started in Rt forearm w 20 cath, Using aseptic tech, infusing at bolus rate for 2 liters. mdr Not Available Not Available Not Available Miconazol e-7 2 % vaginal cream 03/26 completed Not Available Not Available Not Available oxycodone -acetamin ophen 5 mg-325 mg tablet TAKE 1 TO 2 TABLETS BY MOUTH EVERY 6 HOURS NEEDED FOR PAIN. TAKE 1-2 TABLETS NEEDED FOR SEVERE PAIN, MAX OF 6 TABS PER DAY 03/03 completed Not Available Not Available Not Available citalopra m 20 mg tablet take 1/2 tablet for 4 days, then take once daily 08/30 completed Not Available Not Available Not Available Depo-Prov era 150 mg/mL intramusc ular suspensio n Inject 1 mL every 12 weeks 2024 active Not Available Not Available Not Avai lable ropinirol e 0.25 mg tablet Take by oral route for 7 days. 08/12 completed Not Available Not Available Not Available hydrocort isone 1 % topical cream 08/12 completed Not Available Not Available Not Available cephalexi n 500 mg capsule TAKE 1 CAPSULE BY MOUTH EVERY 6 HOURS FOR 10 DAYS 08/27 completed Not Available Not Available Not Available ferrous sulfate 325 mg (65 mg iron) tablet 03/26 completed Not Available Not Available Not Available triamcino lone acetonide 0.1 % topical ointment 08/12 completed Not Available Not Available Not Available nystatin 100,000 unit/gram topical cream 08/12 completed Not Available Not Available Not Available buspirone 10 mg tablet Take 1 tablet 3 times a day by oral route. 07/05 completed Not Available Not Available Not Available nicotine 21 mg/24 hr daily transderm al patch 09/10 completed Not Available Not Available Not Available docusate sodium 100 mg capsule Take 100 mg by oral route. 03/03 completed Not Available Not Available Not Available sertralin e 25 mg tablet Take 1 tablet every day by oral route as directed for 7 days. 08/12 completed Not Available Not Available Not Available folic acid 1 mg tablet Take 1 tablet every day by oral route for 30 days. 02/04 completed Not Available Not Available Not Available hydroxyzi ne HCl 25 mg tablet 07/04 completed Not Available Not Available Not Available amoxicill in 400 mg/5 mL oral suspensio n 08/12 completed Not Available Not Available Not Available mupirocin 2 % topical ointment APPLY OINTMENT TOPICALL Y THREE TIMES DAILY FOR 7 DAYS 09/10 completed Not Available Not Available Not Available ibuprofen 600 mg tablet TAKE 1 TABLET BY MOUTH EVERY 6 HOURS NEEDED 08/27 completed Not Available Not Available Not Available Robafen 100 mg/5 mL oral liquid 03/26 completed Not Available Not Available Not Available SSD 1 % topical cream 03/26 completed Not Available Not Available Not Available propranol ol 20 mg tablet TAKE ONE (1) TABLET TWICE A DAY BY ORAL ROUTE, FOR PANIC ATTACKS. 07/05 completed Not Available Not Available Not Available brompheni ramine-ps eudoephed rine-DM 2 mg-30 mg-10 mg/5 mL oral syrup Take by oral route for 5 days. 08/12 completed Not Available Not Available Not Available ondansetr on 4 mg disintegr ating tablet 07/04 completed Not Available Not Available Not Available Zovirax 5 % topical ointment APPLY TO THE LIPS BY TOPICAL ROUTE EVERY 4 HOURS AT SYMPTOM ONSET 09/29 completed Not Available Not Available Not Available fluticaso ne propionat e 50 mcg/actua tion nasal spray,leopoldo pension Lyman 1 spray every day by intranas al route. 09/29 completed Not Available Not Available Not Available sertralin e 50 mg tablet Take 1 tablet every day by oral route as directed for 30 days. 08/27 completed Not Available Not Available Not Available naproxen 500 mg tablet Take by oral route for 30 days. 07/05 completed Not Available Not Available Not Available Reglan 5 mg tablet Take 1 tablet 3 times a day by oral route for 30 days. 08/27 completed Not Available Not Available Not Available oxycodone 5 mg tablet 09/10 completed Not Available Not Available Not Available hydroxyzi ne pamoate 25 mg capsule Take 1 capsule 3 times a day by oral route as needed. 07/05 completed Not Available Not Available Not Available neomycin- polymyxin -hydrocor t 3.5 mg-10,000 unit/mL-1 % ear drops,leopoldo p INSTILL 2 DROPS INTO LEFT EAR 4 TIMES DAILY FOR 5 DAYS 12/09 completed Not Available Not Available Not Available multivita min with iron tablet Take 1 tablet every day by oral route for 30 days. 09/29 completed Not Available Not Available Not Available medroxypr ogesteron e 150 mg/mL intramusc ular syringe 03/26 completed Not Available Not Available Not Available aripipraz ole 10 mg tablet TAKE 1 TABLET BY MOUTH EVERY DAY AT BEDTIME 07/05 completed Not Available Not Available Not Available Sleep Aid (doxylami ne) 25 mg tablet 03/26 completed Not Available Not Available Not Available nitrofura ntoin monohydra te/macroc rystals 100 mg capsule TAKE 1 CAPSULE BY MOUTH EVERY 12 HOURS FOR 10 DAYS 12/09 completed Not Available Not Available Not Available Seroquel 50 mg tablet Take 1 tablet every day by oral route at bedtime. 08/30 completed Not Available Not Available Not Available calcium 600 mg (as carbonate )-vitamin D3 10 mcg (400 unit) tablet 03/26 completed Not Available Not Available Not Available 28 mg iron-800 mcg tablet Take 1 tablet every day by oral route. 09/10 completed Not Available Not Available Not Available Plus 29 mg iron-1 mg tablet Take 1 tablet every day by oral route. 02/28 completed gummies over the counter Not Available Not Available Not Available PrePlus 27 mg iron-1 mg tablet 09/10 completed Not Available Not Available Not Available Xulane 150 mcg-35 mcg/24 hr transderm al patch Apply 1 patch every week by transder mal route. 07/04 completed Not Available Not Available Not Available Prenate Mini (ferrous asparto glycinate ) 18 mg-1 mg-350 mg capsule 03/26 completed Not Available Not Available Not Available Vitals Date Recorded Body height Body weight Systolic And Diastolic Provider Name and Address Organization Details Last Updated DateTime 08/12/2023 165.1 cm 19182.3 g 108/76 mm[Hg] Mayela Nails [place] - [facility] 08/12/2023 10:20:01 Date Recorded Body height Body mass index (BMI) Body weight Body temperature Heart rate Oxygen saturation Oxygen saturation in Arterial blood by Pulse oximetry Respiratory rate Systolic And Diastolic Provider Name and Address Organization Details Last Updated DateTime 4 165.1 cm 29.1 kg/m2 52071.3 6 g 98.9 [degF] 77 /min 98 % 98 % 16 /min 120/82 mm[Hg] Mayela Orr [place] - [facility] 4 08:53:02 Date Recorded Body height Body mass index (BMI) Body weight Provider Name and Address Organization Details Last Updated DateTime 05/20/2023 165.1 cm 24.8 kg/m2 79007.26 g Juana Stubbs [place] - [facility] 05/20/2023 11:57:48 Date Recorded Body height Body mass index (BMI) Body weight Systolic And Diastolic Provider Name and Address Organization Details Last Updated DateTime 07/05/2024 165.1 cm 26.8 kg/m2 82079.65 g 118/78 mm[Hg] Mayela Nails [place] [facility] 07/05/2024 14:18:40 Social History Question Answer Notes LastModified by Organizat ion Details LastModified Time Tobacco Smoking Status Former Smoker Quit in July 2023 Mayela dalton [place] - [facility] 08/27/2023 08:58:51 Able To Swim? Yes Information not available 03/26/2017 Do You Have An Advance Directive? No [email or web address] Information not available 10/25/2017 If You Are , What Was Your Level Of Alcohol Consumption Prior To ? None [email or web address] Information not available 07/04/2019 Is Anesthesia Consult Planned? No [email or web address] Information not available 07/04/2019 Do You Wear A Helmet When Biking? No Information not available 03/26/2017 Plan Yes Repeat C/s [email or web address] Information no t available 07/04/2019 Are You Blind Or Do You Have Difficulty Seeing? No Information not available 03/26/2017 Is Blood Transfusion Acceptable In An Emergency? Yes Information not available 09/29/2017 Breast Feeding? Yes Informati on not available 07/04/2019 What Is Your Level Of Caffeine Consumption? Moderate Cup Of Coffee Daily [email or web address] Information not available 08/27/2023 Live With Cats/exposure To Cat Litter Yes [email or web address] Information not available 07/04/2019 How Much Tobacco Do You Chew? None Information not available 04/09/2017 In The 14 Days Before Symptom Onset, Have You Had Close Contact With A Laboratory-confi rmed COVID-19 While That Case Was Ill? No Information not available 09/10/2022 In The 14 Days Before Symptom Onset, Have You Had Close Contact With A Person Who Is Under Investigation For COVID-19 While That Person Was Ill? No Information not available 09/10/2022 Have You Been To An Area Known To Be High Risk For COVID-19? No Information not available 09/10/2022 Are You Deaf Or Do You Have Serious Difficulty Hearing? No Information not available 03/26/2017 Diabetes No [email or web address] Information no t available 07/04/2019 What Type Of Diet Are You Following? REGULAR Information not available 09/29/2017 Have You Processed Blood Or Body Fluids From An Ebola Virus Disease Patient Without Appropriate PPE? No Information not available 09/10/2022 Do You Reside In Or Have You Traveled To An Area Where Ebola Virus Transmission Is Active? No Information not available 09/10/2022 Education 12 [email or web address] Information no t available 07/04/2019 What Is The Highest Grade Or Level Of School You Have Completed Or The Highest Degree You Have Received? [id number] [email or web address] Information not available 07/04/2019 How Many Days Of Moderate To Strenuous Exercise, Like A Brisk Walk, Did You Do In The Last 7 Days? 0 [email or web address] Information not available 10/25/2017 On Those Days That You Engage In Moderate To Strenuous Exercise, How Many Minutes, On Average, Do You Exercise? 0 [email or web address] Information not available 10/25/2017 Swimming/diving Yes Informati on not available 03/26/2017 Have There Been Any Changes To Your Family Or Social Situation? Yes [email or web address] Information not available 12/09/2020 How Hard Is It For You To Pay For The Very Basics Like Food, Housing, Medical Care, And Heating? Not Very Hard Information not available 09/10/2022 When Did You Quit Smoking? 1-5yearssincel dustin [email or web address] Information not available 07/05/2024 Frequent Air Travel No Information not available 07/04/2019 Hard Of Hearing Or Deaf In One Or Both Ears? No Information not available 03/26/2017 Have You Recently Or Are You Planning To Travel To An Area With Zika Virus? No Information not available 09/10/2022 High Blood Pressure No [email or web address] Information not available 07/04/2019 High Cholesterol No [email or web address] Informat ion not available 07/04/2019 High Number Of Sexual Partners No [email or web address] Information not available 07/04/2019 Illicit Drugs Pre- Marijuana [email or web address] Information not available 12/09/2020 Legally Blind In One Or Both Eyes? No Information not available 03/26/2017 Live Alone Or With Others? With Others Information not available 03/26/2017 Latex Allergy No [email or web address] Information not available 07/04/2019 Last Menstrual Period? 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 No [email or web address] Information not available 08/27/2023 What Was The Date Of Your Most Recent Tobacco Screening? 07/05/2024 [email or web address] Information not available 07/05/2024 How Many Children Do You Have? 3 [email or web address] Information not available 08/27/2023 What Is Your Current Pack Years? [email or web address] Information not available 09/10/2022 Performs Monthly Self-breast Exam? No Information not available 09/29/2017 Do You Have Any Pets? Yes 4 Dogs, 2 Cats [email or web address] Information not available 07/04/2019 Do You Use Protection During Sex? Always [email or web address] Information not available 10/25/2017 Do You Use Protection Against STDs? No Information not available 09/10/2022 What Is Your Relationship Status? Single Information not available 09/10/2022 Seat Belts Used Routinely Yes Information not available 03/26/2017 Are You Sexually Active? Yes Information not available 03/26/2017 Smoke Alarm In Home Yes Information not available 03/26/2017 Do You Have Smoke And Carbon Monoxide Detectors In Your Home? Yes Information not available 07/04/2019 At What Age Did You Start Smoking Tobacco? 15 [email or web address] Information not available 10/25/2017 Are You Passively Exposed To Smoke? Yes [email or web address] Information not available 07/04/2019 How Much Tobacco Do You Smoke? 0.25 PPD 5 Cigs Q Day Information not available 09/10/2022 Smoking Pre- 1 PPW [email or web address] Information not available 12/09/2020 General Stress Level Low [email or web address] Information not available 07/04/2019 Do You Use Sunscreen Routinely? Yes Information not available 03/26/2017 Supplements Information n ot available 07/04/2019 Has Tobacco Cessation Counseling Been Provided? Yes Information not available 09/10/2022 On What Date Was Tobacco Cessation Counseling Provided? 07/05/2024 [email or web address] Information not available 07/05/2024 How Many Years Have You Smoked Tobacco? 6 Information not available 09/10/2022 Have You Used IV Drugs? No Information not available 09/10/2022 Do You Have Difficulty Walking Or Climbing Stairs? No Information not available 03/26/2017 Do You Have Symptoms Associated With Zika Virus (fever, Rash, Joint Pain, Or Conjunctivitis)? No [email or web address] Information not available 07/04/2019 Have You Recently (within The Last 12 Weeks, Or During A Current ) Traveled To Or Lived In A Zika-affected Area? No [email or web address] Information not available 07/04/2019 Was Contraceptive Counseling Provided? Yes [email or web address] Information not available 07/05/2024 What Contraceptive Method Was Reported At Start Of This Visit? Injectables Information not available 07/05/2024 What Contraceptive Method Was Reported At End Of This Visit? None Information not available 09/10/2022 Do You Want To Talk About Contraception Or Prevention During Your Visit Today? Yes [email or web address] Information not available 07/05/2024 Do You Have Any Future Plans To Get ? No, I Don't Want To Become [email or web address] Information not available 07/05/2024 Sex: Female Functional Status Question Answer Note LastModified by Organizat ion Details LastModified Time Do you or have you ever used smokeless tobacco? Never used smokeless tobacco [email or web address] Information not available 07/04/2019 Are you currently employed? Yes Information not available 09/10/2022 Do you have transportation difficulties? No Information not available 09/10/2022 Are you able to care for yourself? Yes Information n ot available 03/26/2017 Do you have difficulty dressing or bathing? No Information not available 03/26/2017 Do you or have you ever used e-cigarettes or vape? Current user of electronic cigarettes vape [email or web address] Information not available 07/05/2024 What is your exercise level? None Information not available 09/29/2017 Do you use any illicit or recreational drugs? No [email or web address] Information not available 08/27/2023 Do you or have you ever used any other forms of tobacco or nicotine? Yes [email or web address] Information not available 08/27/2023 What is your level of alcohol consumption? None Information not available 03/26/2017 What is your status? Not [email or web address] Information no t available 07/05/2024 Are you able to walk? [email or web address] Information not available 04/09/2017 Do you have difficulty doing errands alone? No Information not available 03/26/2017 What is your occupation? [employer] [email or web address] Information not available 07/05/2024 Mental Status Question Answer Note LastModified by Organizat ion Details LastModified Time Do you feel stressed (tense, restless, nervous, or anxious, or unable to sleep at night)? [id number] [email or web address] Information not available 10/25/2017 Do you have difficulty concentrating, remembering or making decisions? No Information no t available 03/26/2017 Family History Relationship Description Onset Age of this Age Resolved Age Notes LastModified by Organization Details LastModified Time Mother Arthritis [email or web address] Not availab le 03/26/2017 16:09:48 Mother Chronic obstructive pulmonary disease [email or web address] Not available 2016 16:09:58 Father Type 2 diabetes mellitus [email or web address] Not available 2016 16:10:15 Medical History Condition Response Pancreatitis N Other N Atrial Fibrillation N congenital heart disease N Blood Diseases N Hyperthyroidism N Blood Transfusion N Rheumatoid arthritis N Erectile Dysfunction N amputation N Skin Lesions N Depression N Pneumonia N Incontinence N Murmur N Edema N Alzheimer's Disease N Migraine Headaches N Tobacco Abuse N Anxiety Disorder N Hemorrhoids N Obesity N Vision or Eye Problems N Restless Leg Syndrome N Arthritis N Polyps N Infertility N Carpal Tunnel N Acid Reflux (GERD) N Cancer N Varicosities N Stroke N Tendonitis N Crohn's Disease N Hypercholesterolemia N Skin Cancer N Headaches N Fibromyalgia N Irritable Bowel Syndrome N Anal Fissure N Kidney Disease N Heart Problems N Hospitalizations Y Gallstones N Kidney or Bladder Problems N Goiter N Acne N Eating Disorder N Prince's Esophagus N Hypertriglyceridemia N Constipation N Embolism N Vitamin B12 Deficiency N Deviated Septum N AIDS/HIV N Myocardial Infarction N Asthma N Mitral Valve Disorders N Vertigo N Hepatitis N Thyroid Cancer N Neuropathy N History of DVT N Herniated Disc N Chicken Pox N Von Willebrands Disease N Thrombophilias N Breast Cancer N Hernia N Plantar Fasciitis N Hypothyroidism N Lung Disease N Defects or Inherited Disease N Breast Problem N Ovarian Cyst N Anesthesia Complications N Testosterone Deficiency N Interstitial Cystitis N Congenital Anomalies N Hypoglycemia N Blood clot N Vitamin D Deficiency N Cellulitis N Endometriosis N Bladder or Kidney Problems N Fracture N Schizophrenia N Panic Disorder N Concussion N Spina Bifida N Osteoarthritis N Parkinson's Disease N Disc Protrusion N STI N Esophagitis N Angina N Thyroid Problems N GI Problems N ADD/ADHD N Anemia N Multiple Sclerosis N Abnormal PAP N Lumbago N Mental Illness N Psychiatric Illness N Ovarian Cancer N Diabetes N Degenerative Disc Disease N Seizures/Epilepsy N Syncope N Hyperlipidemia N Insomnia N Eczema N Abuse/Domestic Violence N Attention Deficient Disorder N Dementia N Ulcerative colitis N Cerebrovascular Disease N Depression N Guillain-[place] N Sleep Apnea N Aneurysm N Bronchitis N Heart Disease N Suicidal Ideation N Pre-Eclampsia N Hypertension N Osteoporosis N Gynecological History Statement/Question Response Date of Last Mammogram Flow Moderate Date of LMP 07/03/2024 On BCP's at Conception? N STIs/STDs N HPV Vaccine Y Duration of Flow (days) 5 Current Control Method Depo-Quebracho Tanner a Age at Menarche 9 Age at First Child 15 Last Annual Exam/Provider 11/19/22 w/R Ho gge, OBPE Date of Last Colonoscopy Frequency of Cycle (Q days) 28 Most Recent Bone Density Sexually Active? Y Date of Last Cervical Culture 09/10/2022 Menses Monthly Y Date of Last Pap Smear 11/19/2022 Sexual Problems? N LMP Approximate Obstetrics History GPAL:G 4 P 2 2 0 3 Type Value Multiple Births 0 Full Term 2 Induced 0 Spontaneous 0 Premature 2 Living 3 Ectopics 0 Total 4 Immunizations Vaccine Type Date Status Note Provider Nam e and Address Organization Details Recorded Time Tdap 0 completed Infusion Nurse [facility] [address], [address], [place] - [facility] 12/20/2019 11:39:55 Influenza, split virus, quadrivalent, preservative 3 completed Arabella Glass APRN [address], [place], [address], [facility] - [facility] 09/13/2022 19:33:24 Tdap 3 completed Venessa Spivey [place], [place] - [facility] 12/30/2022 10:37:24 Influenza, split virus, quadrivalent, preservative 8 completed Mayela Nails [facility] 08/12/2023 10:11:26 IPV 1 completed Mayela Jaqui null, [place] - [facility] 08/12/2023 10:11:26 IPV 2 completed Mayela Nails null, [place] - [facility] 08/12/2023 10:11:26 IPV 5 completed Mayela Jaqui [place], [place] - [facility] 08/12/2023 10:11:26 IPV 0 completed Mayela Nails [place], [place] - [facility] 08/12/2023 10:11:26 MMR 2 completed Mayela Jaqui [place], [place] - [facility] 08/12/2023 10:11:26 MMR 5 completed Mayela Nails [place], [place] - [facility] 08/12/2023 10:11:26 COVID-19, mRNA, LNP-S, PF, 100 mcg/0.5mL dose or 50 mcg/0.25mL dose 1 completed Mayela Nails null, [place] - [facility] 08/12/2023 10:11:26 Tdap 2 completed Mayela Nails [place], [place] - [facility] 08/12/2023 10:11:26 Pneumococcal conjugate PCV 13 1 completed Mayela Nails [place], [place] - [facility] 08/12/2023 10:11:26 varicella 1 completed Mayela Nails [place], [place] - [facility] 08/12/2023 10:11:26 Hep B, adolescent or pediatric 0 completed Mayela Nails [place], [place] - [facility] 08/12/2023 10:11:26 Hep B, adolescent or pediatric 2 completed Mayela Nails [place], [place] - [facility] 08/12/2023 10:11:26 Hep B, adolescent or pediatric 1 completed Mayela Jaqui [place] [facility] 08/12/2023 10:11:26 Hep A, ped/adol, 2 dose 8 completed Mayela Jaqui [place], [place] - [facility] 08/12/2023 10:11:26 Hep A, ped/adol, 2 dose 1 completed Mayela Jaqui [place], [place] - [facility] 08/12/2023 10:11:26 Hib (PRP-T) 1 completed Mayela Nails [place], [place] - [facility] 08/12/2023 10:11:26 Hib (PRP-T) 2 completed Mayela Nails [place], [place] - [facility] 08/12/2023 10:11:26 Hib (PRP-T) 5 completed Mayela Nails [place], [place] - [facility] 08/12/2023 10:11:26 Hib (PRP-T) 0 completed Mayela Nails null, [place] - [facility] 08/12/2023 10:11:26 meningococcal MCV4P 8 completed Mayela Nails null, [place] - [facility] 08/12/2023 10:11:26 DTaP, unspecified formulation 1 completed Mayela Nails null, [place] - [facility] 08/12/2023 10:11:26 DTaP, unspecified formulation 1 completed Mayela Nails null, [place] - [facility] 08/12/2023 10:11:27 DTaP, unspecified formulation 2 completed Mayela Nails [place], [place] - [facility] 08/12/2023 10:11:27 DTaP, unspecified formulation 5 completed Mayela Nails null, [place] - [facility] 08/12/2023 10:11:27 DTaP, unspecified formulation 0 completed Mayela Nails null, [place] - [facility] 08/12/2023 10:11:27 Influenza, split virus, quadrivalent, preservative 0 completed Not Available [facility] 08/19/2019 03:56:18 Past Encounters Encounter ID Performer Location Encounter Start Date Encounter Closed Date Diagnosis/Indication Diagnosis SNOMED-CT Code Diagnosis ICD10 Code Diagnosis Note [id number] Arabella Ramos APRN [address] [place] [id number] 03/26/2017 15:46:53 03/26/2017 17:00:28 Surveillance of depot contraception done 2237210028 9104 Z30.42 Iron defic iency anemia 74959263 D50.9 Deficiency of vitamin D2 107321503 E55.9 [id number] Adrian Ha MD [address] [place] [address] 03/29/2017 13:51:33 03/29/2017 14:48:16 Initiation of depot contraception done 3083182288 88942 Z30.725 [id number] Arabella Ramos APRN [address] [place] [id number] 04/09/2017 09:27:45 04/09/2017 10:53:56 Menorrhagia 831196382 N92.0 Allergic rhinitis 452754 04 J30.2 [id number] Arabella Ramos APRN [place] [address] [place] [id number] 08/17/2017 11:32:11 08/17/2017 13:24:09 Contraception care management 575167128 Z30.42 Anemia 929596609 D64.9 [id number] Arabella Ramos 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 [address] [place] [id number] 08/20/2017 16:03:23 08/20/2017 17:00:12 Contraception care management 213863720 Z30.42 Anemia screening 1945722 07 Z13.0 [id number] Arabella Ramos APRN [address] [place] [id number] 08/31/2017 15:30:29 08/31/2017 15:56:28 Herpes simplex 41101428 B00.9 [id number] KEVIN Meade RECRUITMENT OFFICER [address] [place] [address] [place] [id number] 7 09/29/2017 13:03:06 09/29/2017 13:50:13 Routine gynecologic examination done 7666023556 9101 Z01.419 Depression screening 171 699066 Z13.89 Diet education 00868977 Z71.3 Encourage healthy eating/edgar it fats, sugars, fried foods Counseling 660380425 Z71 .9 Encouraged regular exercise 30-40min/d ay 4-5 days/wk Contracept ion care management 521332485 Z30.9 on depo per PCP Normal bod y mass index 68163744 Z68.52 Venereal d isease screening 065282121 Z11.3 [id number] KEVIN Lind RECRUITMENT OFFICER [address] [place] [address] [place] [id number] 7 10/25/2017 13:31:38 10/25/2017 14:08:10 Vaginal discharge 830167067 N89.8 R10.2 [id number] Arabella Ramos APRN [address] [place] [address] 7 11/05/2017 10:30:04 11/05/2017 11:12:35 Uses depot contraception 876895412 Z30.42 [id number] Arabella Ramos APRN [address] [place] [id number] 11/23/2017 15:04:54 11/23/2017 17:36:52 Pain in pelvis 33766228 R10.2 [id number] KEVIN Lind RECRUITMENT OFFICER [address] [place] [address] [place] [id number] 7 01/05/2018 10:15:39 01/05/2018 11:26:14 Dysfunctional uterine bleeding 92734119 N93.8 Initiation of transdermal contraception done 2310908276 63694 Z30.992 [id number] Arabella Ramos APRN [place] [address] [place] [id number] 02/04/2018 12:56:24 02/04/2018 13:23:51 Nausea and vomiting 23247827 R11.2 [id number] KEVIN Villagran RECRUITMENT OFFICER [address] [place] [address] [place] [id number] 7 07/04/2019 13:17:02 07/04/2019 14:41:06 Urine test positive 293942029 Z32.01 Supervisio n of high risk with history of previous section done 6074009792 9106 O09.899 High risk 4720 0007 O09.91 screening 2437 03295 Z36.9 [id number] MD Sharon Vera RECRUITMENT OFFICER [address] [place] [address] [place] [id number] 7 07/11/2019 09:53:35 07/11/2019 13:23:18 Gestation period, 8 weeks 17164316 Z3A.08 Hyperemesi s gravidarum 38676450 O21.0 [id number] Farnaz Salgado APRN [place] [employer] [address] [place] [address] [place] [id number] 7 08/08/2019 13:56:08 08/08/2019 14:46:07 Infection screening 718224489 Z11.3 Z11.8 Supervisio n of high risk with history of previous section done 0901203358 9106 O09.899 Maternal drug use 972365 01 O99.325 Gestation period, 12 weeks 91267400 Z3A.12 Administra tion of influenza vaccine 30875832 Z23 [id number] MD Sharon Zhou RE[employer]UITMENT [employer] [address] [place] [address] [place] [id number] 7 10/26/2019 13:29:47 10/26/2019 14:37:37 Anemia 178357643 D64.9 Supervisio n of high risk with history of previous section done 8025908519 9106 O09.899 Herpes simplex 26043266 B00.9 Maternal drug use 231938 01 O99.324 Gestation period, 23 weeks 13538862 Z3A.23 [id number] MD Sharon Zhou RECRUITMENT OFFICER [address] [place] [address] [place] [id number] 7 11/03/2019 13:52:18 11/03/2019 15:36:10 Anemia 420314567 D64.9 Supervisio n of high risk with history of previous section done 2837009543 9106 O09.899 Herpes simplex 86609102 B00.9 Maternal drug use 942913 01 O99.324 Gestation period, 25 weeks 22265067 Z3A.25 screening 2437 88373 Z36.9 [id number] MD Sharon Zhou RE[employer]UITMENT OFFIC[employer] [address] [place] [address] [place] [id number] 7 11/24/2019 08:37:45 11/24/2019 09:51:34 Supervision of high risk with history of previous section done 1153845753 9106 O09.899 Anemia 448488070 D64.9 Maternal drug use 757034 01 O99.324 Gestation period, 28 weeks 44126778 Z3A.28 screening 2437 71581 Z36.9 [id number] Kate Monroe CNM [place] [employer] [address] [place] [address] [place] [id number] 7 12/20/2019 10:55:22 12/20/2019 11:59:13 Acquired scoliosis 881234901 M41.9 Supervisio n of high risk with history of previous section done 2096293897 9106 O09.899 Herpes simplex 20040532 B00.9 Administra tion of diphtheria, pertussis, and tetanus vaccine 848893631 Z23 Maternal drug use 036115 01 O99.324 High risk 4720 0007 O09.93 Gestation period, 31 weeks 65817531 Z3A.31 [id number] Ngoc Mcfadden MD [place] [employer] [address] [place] [address] [place] [id number] 7 01/03/2020 15:00:32 01/03/2020 15:18:07 Anemia 026947848 D64.9 Supervisio n of high risk with history of previous section done 6788004905 9106 O09.899 Gestation period, 33 weeks 03115941 Z3A.33 Maternal drug use 902082 01 O99.737 [id number] MD Sharon Zhou RECRUITMENT OFFICER [address] [place] [address] [place] [id number] 7 01/15/2020 14:29:32 01/15/2020 16:39:09 Maternal drug use 17941813 O99.324 Supervisio n of high risk with history of previous section done 9978116280 9106 O09.899 Gestation period, 35 weeks 89195759 Z3A.35 grow th restriction 20995066 O35.8XX9 [id number] MD Sharon Vera RECRUITMENT OFFICER [address] [place] [address] [place] [id number] 7 01/18/2020 13:02:21 01/18/2020 15:14:38 Acquired scoliosis 896599858 M41.9 Anemia 913684344 D64.9 Herpes simplex 89845370 B00.9 Maternal drug use 513325 01 O99.320 Supervisio n of high risk with history of previous section done 3769907569 9106 O09.899 Gestation period, 35 weeks 37504858 Z3A.35 [id number] Ngoc Mcfadden MD [place] [employer] [address] [place] [address] [place] [id number] 7 01/26/2020 08:22:30 01/26/2020 08:31:04 [id number] Farnaz Salgado APRN [place] [employer] [address] [place] [address] [place] [id number] 7 12/09/2020 09:47:01 12/09/2020 10:42:09 Urine test positive 286392277 Z32.01 High risk 4720 0007 O09.91 Supervisio n of high risk with history of previous section done 6434495964 9106 O09.899 High risk due to history of labor 940432483 O09.219 Depressive disorder 3548 9007 F32.9 Maternal t obacco abuse 345358758 O99.920 [id number] Aaron Christensen MD [place] RE[employer] [address] [place] [address] [place] [id number] 7 12/18/2020 12:56:42 12/18/2020 14:04:51 High risk 50058407 O09.92 x2 High risk due to history of labor 868737300 O09.219 Lower urin gelacio tract infectious disease 7167220 N39.0 Venereal d isease screening 189547743 Z11.3 Infection screening 2437 29859 Z11.3 Z11.8 Gestation period, 18 weeks 43169927 Z3A.18 [id number] Tiffany Arthur MS, RDN, LDN [place] [employer] [address] [place] [address] [place] [id number] 7 01/09/2021 08:49:58 01/09/2021 14:31:53 84522070 Z33.1 [id number] MD Sharon Mendez RECRUITMENT OFFICER [address] [place] [address] [place] [id number] 7 01/09/2021 08:49:58 01/09/2021 14:31:53 Gestation period, 20 weeks 10725798 Z3A.20 screening 2437 59044 Z36.9 Acquired scoliosis 32384 6001 M41.9 Anemia 634975723 D64.9 Depressive disorder 3548 9007 F32.9 Herpes simplex 70976755 B00.9 High risk 4720 0007 O09.92 x2 Lower urin gelacio tract infectious disease 6559100 N39.0 Maternal drug use 631332 01 O99.325 Maternal t obacco abuse 926937404 O99.332 Insufficie nt care 6615906651 109 O09.32 Past pregn natalia history of section 782162580 Z98.890 Past pregn natalia history of premature delivery 133681673 Z87.51 [id number] MD Sharon Mendez RECRUITMENT OFFICER [address] [place] [address] [place] [id number] 7 02/28/2021 15:18:21 02/28/2021 16:06:40 Gestation period, 27 weeks 33688992 Z3A.27 screening 2437 11005 Z36.9 Acquired scoliosis 38640 6001 M41.9 Anemia 535468428 D64.9 Depressive disorder 3548 9007 F32.9 Herpes simplex 98275313 B00.9 High risk 4720 0007 O09.92 x2 Insufficie nt care 8856337678 109 O09.32 Lower urin gelacio tract infectious disease 1838218 N39.0 Maternal drug use 712396 01 O99.325 Maternal t obacco abuse 879052976 O99.332 Deliveries by 733352700 O82 Past pregn natalia history of premature labor 618139494 Z87.51 [id number] MD Sharon Mendez RECRUITMENT OFFICER [address] [place] [address] [place] [id number] 7 03/10/2021 10:41:34 03/10/2021 11:15:19 Gestation period, 29 weeks 85985498 Z3A.29 Allergic rhinitis 277337 04 J30.9 screening 2437 83407 Z36.9 Acquired scoliosis 60589 6001 M41.9 Anemia 288549044 D64.9 Depressive disorder 3548 9007 F32.9 Herpes simplex 08460933 B00.9 High risk 4720 0007 O09.92 x2 Insufficie nt care 7882335349 109 O09.32 Lower urin gelacio tract infectious disease 9374780 N39.0 Maternal drug use 932910 01 O99.325 Maternal t obacco abuse 865726547 O99.332 anom joanie present in specimen 644679516 R89.8 Oligohydramnios 03446245 O41.03X1 Past pregn natalia history of premature labor 351209398 Z87.51 Past pregn natalia history of premature delivery 089832789 Z87.51 Past pregn natalia history of section 518744420 Z98.754 [id number] MD Fatoumata [place] RECRUITMENT OFFICER [facility] [place] [id number] 7 03/12/2021 09:00:03 03/12/2021 10:19:16 Gestation period, 29 weeks 84380049 Z3A.29 screening 2437 19643 Z36.9 High risk 4720 0007 O09.92 x2 anom joanie present in specimen 122297635 R89.8 Oligohydramnios 05068069 O41.03X1 Insufficie nt care 0057517623 109 O09.32 Acquired scoliosis 33827 6001 M41.9 Anemia 210003555 D64.9 Depressive disorder 3548 9007 F32.9 Herpes simplex 03454939 B00.9 Maternal drug use 138688 01 O99.325 Maternal t obacco abuse 750762182 O99.332 Past pregn natalia history of premature labor 977206632 Z87.51 Past pregn natalia history of premature delivery 011879791 Z87.51 Past pregn natalia history of section 627153811 Z98.890 History of urinary tract infection 3302876652 107 Z87.857 [id number] KEVIN Figueroa RECRUITMENT OFFICER 7 [facility] [place] [id number] 7 09/10/2022 12:57:02 09/10/2022 15:09:14 Routine care 601035412 Z34.90 Urine preg adrian test positive 804621155 Z32.01 Past pregn natalia history of premature delivery 460782294 Z87.51 Supervisio n of high risk with history of previous section done 1480350148 9106 O09.892 Maternal t obacco abuse 221809816 O99.332 Tobacco user 610967698 Z 72.0 Administra tion of influenza vaccine 05563963 Z23 screening 2437 96123 Z36.87 Late entry into care 687027801 O09.32 Gestation period, 16 weeks 68283207 Z3A.16 Insufficie nt care 8052235794 109 O09.32 [id number] Arabella Glass APRN [place] [employer] [address] [place] [address] [place] [id number] 7 10/08/2022 10:28:37 10/08/2022 12:18:13 Gestation period, 20 weeks 31077327 Z3A.20 screening 2437 35022 Z36.87 Supervisio n of high risk with history of previous section done 3171145401 9106 O09.892 Past pregn natalia history of premature delivery 561733483 Z87.51 Maternal t obacco abuse 754385254 O99.332 Tobacco user 623842514 Z 72.0 Late entry into care 232113020 O09.32 Insufficie nt care 9600183948 109 O09.32 [id number] Kate Monroe CNM [place] [employer] [address] [place] [address] [place] [id number] 7 11/19/2022 15:31:17 11/19/2022 16:15:54 screening 362931879 Z36.9 Acquired scoliosis 79215 6001 M41.9 Herpes simplex 00510432 B00.9 Past pregn natalia history of premature delivery 888127463 Z87.51 Supervisio n of high risk with history of previous section done 0472944269 9106 O09.892 Late entry into care 685374746 O09.32 Screening for malignant neoplasm of cervix 692760317 Z12.4 Z11.3 Routine an tenatal care 320937472 Z34.92 High risk 4720 0007 O09.93 Gestation period, 26 weeks 79445446 Z3A.26 [id number] Arabella Glass APRN [place] [employer] [address] [place] [address] [place] [id number] 7 12/03/2022 08:27:35 12/03/2022 10:10:57 screening 775253650 Z36.9 Herpes simplex 94983226 B00.9 Past pregn natalia history of premature delivery 064343610 Z87.51 Supervisio n of high risk with history of previous section done 0798503495 9106 O09.892 Insufficie nt care 4922896259 109 O09.32 Gestation period, 28 weeks 31954722 Z3A.28 Late entry into care 838678637 O09.32 [id number] Tiffany Arthur MS, RDN, LDN [place] [employer] [address] [place] [address] [place] [id number] 7 12/17/2022 12:29:27 12/17/2022 14:26:16 87337326 Z33.1 [id number] Ngoc Mcfadden MD [place] [employer] [address] [place] [address] [place] [id number] 7 12/17/2022 13:14:25 12/17/2022 14:23:07 screening 348741224 Z36.9 Herpes simplex 86351955 B00.9 Supervisio n of high risk with history of previous section done 3380314623 9106 O09.892 Past pregn natalia history of premature delivery 792966581 Z87.51 Late entry into care 663415054 O09.32 Insufficie nt care 9354765777 109 O09.32 Gestation period, 30 weeks 30658479 Z3A.30 [id number] Kate Monroe CNM [place] [employer] [address] [place] [address] [place] [id number] 7 02/04/2023 15:28:55 02/04/2023 16:33:10 depression 65372826 F53.0 She desires to begin Zoloft medication . She has counselor at [facility] she plans to call. She will F/U her in 1 wk. Depressive disorder 8628 9007 F32.A state 3584557 1 Z39.2 support 40 0940937 Z39.1 [id number] Ngoc Mcfadden MD [place] [employer] [address] [place] [address] [place] [address] 7 02/09/2023 10:53:50 02/09/2023 11:35:40 depression 45434745 F53.0 state [id number] 1 Z39.2 care [id number] 8 Z39.2 Contracept ion care management 836710406 Z30.9 Past pregn natalia history of section 036546067 Z98.992 [id number] TRELL MEYERS DO [place] RECRUITMENT OFFICER [address] [place] [address] PRASAD Marie [phone] 7 03/03/2023 14:18:18 03/03/2023 14:59:38 Maternal depression screening [id number] 85046 Z13.32 care 53715820 8 Z39.2 Cleared to return to work with a 25 pound lifting restrictio n. 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 She still should be seen at 6 weeks PP. management 278 701067 Z39.1 [id number] KEVIN Figueroa RECRUITMENT OFFICER [address] [place] [address] PRASAD Marie [phone] 7 05/20/2023 11:50:35 05/20/2023 11:59:01 Uses depot contraception 822637278 Z30.42 [id number] KEVIN Meade RECRUITMENT OFFICER [address] [place] [address] PRASAD Marie [id number] 7 08/12/2023 09:51:35 08/12/2023 10:20:59 Surveillance of depot contraception done 0877185162 9104 Z30.42 [id number] KEVIN [place] [address] PRASAD Marie 22537-114 7 08/27/2023 08:46:15 08/27/2023 09:47:25 Long-term drug therapy 850105508 Z79.899 Panic attack 622999362 F 41.0 Posttrauma tic stress disorder 08805837 F43.10 [id number] KEVIN Meade RECRUITMENT OFFICER 7 [facility] PRASAD Marie 05549-489 7 07/05/2024 08:50:57 07/05/2024 21:26:22 Abnormal urine odor 1528473 R82.90 Contracept ion care management 699011787 Z30.9 Initiation of depot contraception done 8477078902 24686 Z30.013 Counseling for intrauterine device contraception done 1595258410 9102 Z30.300 [id number] Sherie Oswald APRN [place] RECRUITMENT OFFICER 7 [facility] PRASAD Marie 99120-983 7 11/01/2024 09:50:36 11/01/2024 10:08:22 Uses depot contraception 976907316 Z30.42 Health Concerns Section Related Observation LastModified by Organization Detai ls LastModified Time None Recorded Concern Status LastModified by Organization Details LastModified Time None Recorded Advance Directives Directive N: Payers Insurance Date Sequence Insurance Name Policy Number Policy Becker Covered Member ID Becker Member ID Guarantor Name 11/01/2024 1 [facility] Alana Gordon [id number] Alana Gordon 11/01/2024 1 [facility] (MEDICAID REPLACEMENT - HMO) Alana Gordon [id number] Alana Gordon 02/09/2023 1 *SELF PAY* Tr inlaisha Gordon 12/18/2024 1 [facility] (MEDICAID REPLACEMENT - HMO) [facility] Alana Gordon [id number] Alana Gordon 11/01/2024 2 [facility] (MEDICAID REPLACEMENT - HMO) Alana Gordon [id number] Alana Gordon 11/01/2024 1 [facility] (MEDICAID REPLACEMENT - HMO) Alana Gordon [id number] Alana Gordon 11/01/2024 2 [facility] (MEDICAID REPLACEMENT - HMO) Alana Gordon [id number] Alana Gordon 11/01/2024 1 [facility] ([place] REPLACEMENT [place] Al[place] Gordon [id number] Alana Ayala Drake 12/17/2024 [place] [facility] [place] JIMBO Ayala Evan [id number] Alana Ayala Evan 11/01/2024 1 [facility] (MEDICAID REPLACEMENT - HMO) JIMBO Ayala Evan [id number] Alana Ayala Evan Notes Date Note Type Note Provider Name and Address Organization Details Recorded Time 05/20/2023 text/html Doing well with depo and desires to continueRto 12 wks for next injectionEncourage Ca/Vit D supplement Arabella Glass, 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 [address], [place], [address], [place] [facility] 05/20/2023 12:39:11 08/12/2023 text/html Here for depo. D enies concerns. Sherie Darek, 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 [address], [place], [address], [place] [facility] 08/12/2023 12:50:50 08/27/2023 text/html Patient presents today to establish care. She states she has been having issues with her restless leg and pain. She has tried Requip, but it has not helped. She states she has been taking Ibuprofen and Naproxen, and alternating them. She states she works 10 hours daily. She states she has a case going with CPS, and her recent UDS came back positive for Gabapentin. She was informed that one of her medications could have caused a false positive. She states she has never taken Gabapentin. pt wanting gabapentin to help with chronic leg restlessness and pain in rory legs. She also has been having issues with her PTSD and experiencing anxiety. Farnaz Thomas, 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 [address], [place], [address], [place] [facility] 08/30/2023 10:58:14 07/05/2024 text/html Alana presents today to discuss control options. Alana states last depo injection was given at [facility] however is unsure of date. She thinks she is utd. Alana states notices increased pelvic pain/ovarian cyst with Depo and would like to discuss other options.Options reviewed. She declines pills, patch, ring. I reviewed Nexplanon and IUD with her. She prefers Mirena. Explained in detail. Brochure provided. Alana is also complaining of frequent urination, urgency, dysuria and odor to urine. Sherie Oswald, 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 [address], [place], [address], [facility] - [facility] 07/05/2024 15:05:17 11/01/2024 text/html Doing well with depo and desires to continueRto 12 wks for next injectionEncourage Ca/Vit D supplement Reproductive life plan discussed. Patient does not plan to have children in the future. control offered. Patient accepted. Number of sexual partners: _?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 [email or web address] [email or web address] 12/09/2020 Intimate Partner Violence no ky [id number] 12/09/2020 Unstable Housing no [id number] 12/09/2020 Use of any medicatio ns (including supplements, vitamins, herbs, or OTC drugs) 12/09/2020 Avoidance of saunas or hot tubs [id number] 12/09/2020 Indications for ultrasonography [id number] 12/09/2020 Comminucation Barriers no kyoun [id number] 12/09/2020 Anticipated course o f care 12/09/2020 Toxoplasmosis precau tions (cats/raw meat) Yes - does not change litter 12/09/2020 Sexual activity 12/09/2020 Exercise 12/09/2020 Tobacco/smoking cess ation counseling (ask, advise, assess, assist, and arrange) Yes - 1/4 PPD 12/09/2020 Barriers to Care no [email or web address] 12/09/2020 Environmental/work hazards reviewed k 12/09/2020 Depression/Anxiety ( should be performed at least once during period) Yes 12/09/2020 WIC/Hands Referral 12/09/2020 Nutrition counseling ; special diet; dietary precautions (mercury, listeriosis) 12/09/2020 Dental Care / Refer to Dentist 12/09/2020 Seat belt use [id number] 12/09/2020 Childbirth classes/h ospital facilities [email or web address] 12/09/2020 Breast 12/09/2020 Screening for aneuploidy [email or web address] Second Trimester Discussed Date Discussion Item Discussion Note Discuss ed By Third Trimester Discussed Date Discussion Item Discussion Note Discuss ed By Labor Support Person(s) Babak Infant Feeding Intention Breast Circumcision Preference Yes Feeding Breast Delivery Information Delivery Date Delivery Type Labor Anesthesia Weeks Gestation Incision Type Labor Labor Length Hrs Delivered By Post Complications Tubal Sterilization Discharge Date Comments Sponta neous 32.4 true None 04/04/2021 admit to for labor, lethal anomalies , breech fetus, no lac or repair Discharge Information Feeding Method Contraceptive Method Maternal HG B and HCT Levels Ob Episode Information Episode Created Date Number of Fetuses Patient Bloodtype Patient rh Status Prepregnancy Weight lbs Domestic Partner Domestic Partner Phone Father Name [employer] Plant Caretaker Status 07/04/20 19 1 B Positive babak velazquez, white, 21 kidcare CLOSED Fetus Data First Name Last Name Admitted to NICU Weight (g) Sex Living Outcome Pediatric Complications Fetus ID Race Codes Race Delivery Type Sereni ty 2267.96 F true Prematur e [id number] Problems Problem Notes GIRL! Serenity 09/2016 38 wk pCS abruption, emergent, 5#1oz @ SOMCScheduled for rCS 02/08 with KRAULTRASOUNDS:06/26/2019: ER US 6+6 wk GA confirms DIO 02/16/2020 by LMP109/11/2018: Viability US with DRW confirms DIO 02/16/2020 by LMP4/3 Anatomy US complete, normal, female, CL reassuring//KRA01/14: S<D; EFW 6%tile, 1943gm, ELLIS 15.87cm, UAD 3.24. Seeing [facility] 01/17//KRA01/17: 3%tile, AC < 1%tile; Dopplers wnl; EFW 4# 3 oz, 8/8 BPP; suggested delivery at 37-38 weeks Problem Name Start Date End Date Resolution Snomed Code Not e growth restriction [id number] 35 wk EFW 6%til e, UAD 3.24[x] [facility] 01/17: EFW 4# 3 oz, 3%tile, AC < 1%; BPP 03/09: 2x/wk NST, del 37-38 wks Supervision of high risk with history of previous section done 09/02/2016 [id number] abru ption 38 weeks after SROM:: Plans rCS; scheduled 02/08 with KRA Active or passive immunization 07/04/2019 [id number] Flu 08/08/19[x] Tdap-12/20/19 Substance abuse 07/04/2019 [id number] + T HC @ OBHx & OBPE[=+] UDS 12/20/19 THC w Low CrRepeat 6/ THC: ref to for counseling screening 07/04/2019 [id number] FTS performed NT 1.7mm; serum WNL[-] AFP missed Moderate hyperemesis gravidarum 07/11/2019 [id number] 19# loss in 6 days; Received IVF in office; Rx Zofran Insufficient care [id number] no care 12-24 weeks Contraception care [id number] N uvaring Dio Calculation Initial Dio Date Initial Exam Date Initial Exam Provider Initial Ultrasound Date Last Menstrual Period Date Ultra Sound Weeks Gestation 02/16/2020 07/04/2019 07/11/2019 05/12/2019 9 Eighteen To Twenty Week Dio Update Ultra Sound Date Fundal Height At Umbil Quickening Date Ultra Sound Latest Weeks Gestation Final Dio Confirmed By Final Dio Confirmed Date Final Dio Date Ultra Sound Latest Days Gestation 0 02/16/20 20 0 Pre- Flowsheet Flowsheet Date 07/04/2019 Rice Score Blood Edema Fundus Height Fundus Units Glucose Ketones Leukocytes Nitrite Labor Signs Protein Cervic Dilation Cervic Effacement Cervic Station neg none none negative none Negative neg Type Weight in lbs Pre/Post Dialysis Refused With clothes 149.553492309748 BP Diastolic BP Location Tested BP Systolic BP Type 76 128 sitting Fetus Heart Rate Present Fetus Movement Comments obhx, no lof, no vb, obtaine d labs, discussed screening test-ctTrinity presents today for an OB Hx. She states this was not a planned , but it was desired. She had an emergency @ 38 wk with her first due to a placental abruption at [facility]. She is planning repeat here. Reviewed plan of care. Sent PNV to [facility] pharmacy. Will obtain OB labs today. F/U 1-2 wk for dating US and visit. Flowsheet Date 07/10/2019 Rice Score Blood Edema Fundus Height Fundus Units Glucose Ketones Leukocytes Nitrite Labor Signs Protein Cervic Dilation Cervic Effacement Cervic Station Type Weight in lbs Pre/Post Dialysis Refused BP Diastolic BP Location Tested BP Systolic BP Type Fetus Heart Rate Present Fetus Movement Comments OBHX UDS +THC; please discus s at next visit and offer counseling with our therapists or [facility] via telehealth. abr/ Flowsheet Date 07/11/2019 Rice Score Blood Edema Fundus Height Fundus Units Glucose Ketones Leukocytes Nitrite Labor Signs Protein Cervic Dilation Cervic Effacement Cervic Station neg none trace negative none Negative neg Type Weight in lbs Pre/Post Dialysis Refused Weight 130.066660214378 BP Diastolic BP Location Tested BP Systolic BP Type 62 102 Fetus Heart Rate Present A 172 Fetus Movement Comments no vb, no lof, c/o having se derek vomiting and unable to stay hydrated. Pt has tried the B12 and unisom with ximena and states it helps for a little while and that's it. Has concerns of her weight loss with this . Had an episode yesterday where she was so dehydrated she was about to go to the er for fluids bc she was dizzy/BWUS discussed. HG: dry MM and dry skin w decreased turgor. Rx Zofran; 2000 cc D5LR in office today. Declined [facility] admit. Will RTO 3 d. Diet and liquids disc/DRW Flowsheet Date 08/08/2019 Rice Score Blood Edema Fundus Height Fundus Units Glucose Ketones Leukocytes Nitrite Labor Signs Protein Cervic Dilation Cervic Effacement Cervic Station neg none 12 wks none negative none Negative none neg Type Weight in lbs Pre/Post Dialysis Refused With clothes 127.410714210522 BP Diastolic BP Location Tested BP Systolic BP Type 68 110 Fetus Heart Rate Present A 152 Fetus Movement Comments OBP, no lof, no vb-ct // Tri nity presents today @ 12 wk for an OB Pe. She states her nausea has subsided. She denies VB, LOF or vaginal d/c. Discussed + UDS, states she has not used since 06/01. She took a pursue care pamphlet. Will send another UDS today. She would like to have a FTS, will sched and desires flu vaccine today. No other questions or concerns. Flowsheet Date 10/26/2019 Rice Score Blood Edema Fundus Height Fundus Units Glucose Ketones Leukocytes Nitrite Labor Signs Protein Cervic Dilation Cervic Effacement Cervic Station neg 23 cm none negative none Negative neg Type Weight in lbs Pre/Post Dialysis Refused Weight 138.276013572450 BP Diastolic BP Location Tested BP Systolic BP Type 66 116 sitting Fetus Heart Rate Present A 150 Present Fetus Movement Comments No vb, no lof, neg leuk, neg nit, no complaints/BW////Doing well today. Many questions about COVID answered. She works at [employer]. Discussed washing hands, etc. No care between 12 weeks until now. Discussed importance of care! Return in 1 week for GA/CATARINA US. RADHA Flowsheet Date 11/03/2019 Rice Score Blood Edema Fundus Height Fundus Units Glucose Ketones Leukocytes Nitrite Labor Signs Protein Cervic Dilation Cervic Effacement Cervic Station neg none negative none Negative neg Type Weight in lbs Pre/Post Dialysis Refused With clothes 138.822125676817 BP Diastolic BP Location Tested BP Systolic BP Type 64 118 sitting Fetus Heart Rate Present A 142 Present Fetus Movement Comments GA/CATARINA US today, AFM, no cu rrent complaints//c.dicken///Anatomy US complete, normal, female, CL reassuring. No complaints. return in 3 weeks for 1 hour. She quit her job due to COVID and is feeling more relaxed about everything. 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 Will not need ppx. No VB, LOF, ctx. Some round ligament pain but she ordered a support belt! 1 hour, CBC and UDS today. Surgery referral placed to schedule rCS @ 39 weeks. Planning possible Nuvaring for contraception. Return in 2 weeks. RADHA Flowsheet Date 12/20/2019 Rice Score Blood Edema Fundus Height Fundus Units Glucose Ketones Leukocytes Nitrite Labor Signs Protein Cervic Dilation Cervic Effacement Cervic Station neg none 31 cm none negative trace Negative none neg Type Weight in lbs Pre/Post Dialysis Refused Weight 149.585872902725 BP Diastolic BP Location Tested BP Systolic BP Type 64 104 sitting Fetus Heart Rate Present A Present Fetus Movement A Yes Comments No vb, lof or unusual d/c. W ants TDAP today. Denies any problems. mdr//Baby active. Denies problems or concerns. She needs to schedule c/S with Kala. I do not see surgical notes-Plan to request records. TDAP given and aware that family also needs TDAP if not up-to-date. Collected UA for UDS today, urine very dilute- UPT negative. Request additional Urine for UDS. She denies any drug use. RTC 2 wks. RH Flowsheet Date 2019 Rice Score Blood Edema Fundus Height Fundus Units Glucose Ketones Leukocytes Nitrite Labor Signs Protein Cervic Dilation Cervic Effacement Cervic Station Type Weight in lbs Pre/Post Dialysis Refused BP Diastolic BP Location Tested BP Systolic BP Type Fetus Heart Rate Present Fetus Movement Comments Discuss positive THC on UDS with low Creatinine Flowsheet Date 01/03/2020 Rice Score Blood Edema Fundus Height Fundus Units Glucose Ketones Leukocytes Nitrite Labor Signs Protein Cervic Dilation Cervic Effacement Cervic Station neg none 31 cm none negative none Negative neg Type Weight in lbs Pre/Post Dialysis Refused Weight 145.1342926982 BP Diastolic BP Location Tested BP Systolic BP Type 78 112 Fetus Heart Rate Present A 120 Present Fetus Movement Comments pt states no LOF, VB, occasi onal tj nelson, pt is concerned with how dark her urine has been. /EV///Discussed increased PO hydration with water. No regular ctx. Discussed + THC. She says she stopped but would like to see counseling anyway. She says she was positive at delivery with her last (in the cord). Encouraged cessation. S<D today, measuring 31cm. Plan return in 1 week with growth/ELLIS. Reviewed [facility]. KRA Flowsheet Date 01/06/2020 Rice Score Blood Edema Fundus Height Fundus Units Glucose Ketones Leukocytes Nitrite Labor Signs Protein Cervic Dilation Cervic Effacement Cervic Station Type Weight in lbs Pre/Post Dialysis Refused BP Diastolic BP Location Tested BP Systolic BP Type Fetus Heart Rate Present Fetus Movement Comments Seen on L&D for decreased mo vement and spotting. Spotting stopped. No blood on glove. Cvx 1/60/-3 and posterior. Reactive/Reassuring FM. Pt feeling movement. BV on wet mt. Rx flagyl. Initial BP 133/90, second one normal. Pre-E labs WNL. F/u as scheduled. KRA Flowsheet Date 01/12/2020 Rice Score Blood Edema Fundus Height Fundus Units Glucose Ketones Leukocytes Nitrite Labor Signs Protein Cervic Dilation Cervic Effacement Cervic Station Type Weight in lbs Pre/Post Dialysis Refused BP Diastolic BP Location Tested BP Systolic BP Type Fetus Heart Rate Present Fetus Movement Comments L&D visit for diarrhea. bett er with IVF and immodium. Suspect secondary to watermelon. F/u on Wednesday as scheduled. RADHA Flowsheet Date 01/15/2020 Rice Score Blood Edema Fundus Height Fundus Units Glucose Ketones Leukocytes Nitrite Labor Signs Protein Cervic Dilation Cervic Effacement Cervic Station neg none none negative none Negative neg 1cm 70 % -3 Type Weight in lbs Pre/Post Dialysis Refused Weight 147.022477559635 BP Diastolic BP Location Tested BP Systolic BP Type 80 120 Fetus Heart Rate Present A 132 Present Fetus Movement Comments pt states no VB, LOF, ctx. s harp pains in pelvis and cramping in her legs. //EV/////Cvx no significant change from prior exams. Discussed increased PO Hydration. Drinks a lot of gatorade but encouraged water. Growth US today for S<D performed, and EFW 1943gm 6%tile concerning for IUGR. ELLIS reassuring 15.87cm. UAD 3.24 which is elevated, but not reversed or absent. NST performed and reactive/reassuring. Discussed with patient. It sounds like from her prior delivery @ 38 weeks weighing 5#1oz, she has a history of IUGR. Plan evaluation on --they are thankfully able to add her on. Reviewed STRICT precautions in the meantime. Also discussed with Dr. Domo [facility] and they agree with plan. RADHA Flowsheet Date 01/18/2020 Rice Score Blood Edema Fundus Height Fundus Units Glucose Ketones Leukocytes Nitrite Labor Signs Protein Cervic Dilation Cervic Effacement Cervic Station neg none 33 cm none negative none Negative neg 1cm 70 % -2 Type Weight in lbs Pre/Post Dialysis Refused With clothes 149.509285110135 BP Diastolic BP Location Tested BP Systolic BP Type 80 116 sitting Fetus Heart Rate Present A Present Fetus Movement A Yes Comments Afm, no lof or vb. Neg. nite and leuk.Pt said that she is drinking better/JCUK US vtx, 3%tile, AC < 1%tile; UA dopplers wnl; BPP 8/8. NST reactive but contx q 6 min x 30 .Uterus NT to exam. I asked Dr. FREY to check as she saw her 2 d ago and there is no Cx change but pt will go to L and D for fluids and monitoring and we will move C/S date to 01/[address] [facility] recommendation (Dr. Kelly). Plans NST in 4 d if no change in meantime/DRW Flowsheet Date 01/18/2020 Rice Score Blood Edema Fundus Height Fundus Units Glucose Ketones Leukocytes Nitrite Labor Signs Protein Cervic Dilation Cervic Effacement Cervic Station Type Weight in lbs Pre/Post Dialysis Refused BP Diastolic BP Location Tested BP Systolic BP Type Fetus Heart Rate Present Fetus Movement Comments Cvx no change. Ctx irregular . Reassuring/Reactive monitoring. Discharged home with strict precautions to return on Wednesday with NST. GBBS and gcct collected on L&D. KRA Flowsheet Date 01/26/2020 Rice Score Blood Edema Fundus Height Fundus Units Glucose Ketones Leukocytes Nitrite Labor Signs Protein Cervic Dilation Cervic Effacement Cervic Station Type Weight in lbs Pre/Post Dialysis Refused BP Diastolic BP Location Tested BP Systolic BP Type Fetus Heart Rate Present Fetus Movement Comments Menstrual History Last Menstrual Date Menses Monthly On Bcp Conception Prior Menses Frequency Hcg Plus Date Menarche Onset Age 1005/12/2019 true Genetic Screening And Infection History Question Response Note Patient's Age Will Be 35 Yea rs Or Older At Estimated Date of Delivery false Thalassemia (Canadian, Bruneian, Mediterranean, Or Background): MCV < 80 false Neural Tube Defect (Meningom yelocele, Spina Bifida, Or Anencephaly) false Congenital Heart Defect false Down Syndrome false Mohan-Sachs (eg, Protestant, Cajun , Ugandan-Honduran) false Virgen Disease false Sickle Cell Disease Or Trait () false Hemophilia Or Other Blood Disorders false Muscular Dystrophy false Cystic Fibrosis false Luciana's Chorea false Mental Retardation/Autism false If Yes, Was Person Tested Fo r Fragile X? false Other Inherited Genetic Or C hromosomal Disorder false Maternal Metabolic Disorder (eg, Type 1 Diabetes, PKU) false Patient Or Baby's Father Had A Child With Defects Not Listed Above false Recurrent Loss, Or A Stillbirth false Medications (including Suppl ements, Vitamins, Herbs, OTC Drugs), Illicit/Recreational Drugs, Alcohol true marijuana prior to + UPT, loratadine If Yes, Agent(s) And Strength/Dosage true Any Other Genetic History false Live With Someone With TB Or Exposed To TB false Patient Or Partner Has Histo ry Of Genital Herpes false Rash Or Viral Illness Since Last Menstrual Period false History Of STD, Gonorrhea, C hlamydia, HPV, Syphilis false Other Infection History false History of HIV false History of Hepatitis false Prior GBS-infected child false Recent Travel Outside of Country false Plans and Education First Trimester Discussed Date Discussion Item Discussion Note Discuss ed By 07/04/2019 Desire for Unplanned 07/04/2019 Alcohol no 07/04/2019 Illicit/recreational drugs No patricia [id number] 07/04/2019 Nutrition Discussed 07/04/2019 Weight gain counseling Reviewed 07/04/2019 Intimate Partner Violence No prasad [id number] 07/04/2019 Unstable Housing no 07/04/2019 Use of any medicatio ns (including supplements, vitamins, herbs, or OTC drugs) Reviewed 07/04/2019 Avoidance of saunas or hot tubs Reviewed 07/04/2019 Indications for ultrasonography Reviewed 07/04/2019 Comminucation Barriers no oun g107/04/2019 Anticipated course o f care Reviewed 07/04/2019 Toxoplasmosis precau tions (cats/raw meat) Yes - discussed 07/04/2019 Sexual activity Reviewed 07/04/2019 Exercise Reviewed 07/04/2019 Tobacco/smoking cess ation counseling (ask, advise, assess, assist, and arrange) Yes - < 1/4 PPD 07/04/2019 Barriers to Care no 07/04/2019 Environmental/work hazards No k [id number] 07/04/2019 Depression/Anxiety ( should be performed at least once during period) Yes - was taking medication ? name, nothing now 07/04/2019 WIC/Hands Referral 07/04/2019 Nutrition counseling ; special diet; dietary precautions (mercury, listeriosis) Reviewed [id number] 07/04/2019 Dental Care / Refer to Dentist Reviewed [email or web address] 07/04/2019 Seat belt use Reviewed 07/04/2019 Childbirth classes/h ospital facilities Reviewed 2019 Bottle [id number] 07/04/2019 Screening for aneuploidy Reviewed kyo [id number] Second Trimester Discussed Date Discussion Item Discussion Note Discuss ed By Reproductive Life Pl anning & Contraception Depo or Nexplanon Third Trimester Discussed Date Discussion Item Discussion Note Discuss ed By Pain Management Plans Spinal Circumcision Preference Yes Delivery Information Delivery Date Delivery Type Labor Anesthesia Weeks Gestation Incision Type Labor Labor Length Hrs Delivered By Post Complications Tubal Sterilization Discharge Date Comments 0 [facility] 36 Low Transvers e true lshower None false 01/21/2020 Arrived in labor, Repeat c/s per LLS Discharge Information Feeding Method Contraceptive Method Maternal HG B and HCT Levels Breast Plans IUD 11.4 Ob Episode Information Episode Created Date Number of Fetuses Patient Bloodtype Patient rh Status Prepregnancy Weight lbs Domestic Partner Domestic Partner Phone Father Name [employer] Caretaker Status 04/09/20 17 1 CLOSED Fetus Data First Name Last Name Admitted to NICU Weight (g) Sex Living Outcome Pediatric Complications Fetus ID Race Codes Race Delivery Type 2296.08 [id number] F Full Term [id number] Dio Calculation Initial Dio Date Initial Exam Date Initial Exam Provider Initial Ultrasound Date Last Menstrual Period Date Ultra Sound Weeks Gestation 0 Eighteen To Twenty Week Dio Update Ultra Sound Date Fundal Height At Umbil Quickening Date Ultra Sound Latest Weeks Gestation Final Dio Confirmed By Final Dio Confirmed Date Final Dio Date Ultra Sound Latest Days Gestation 0 0 Menstrual History Last Menstrual Date Menses Monthly On Bcp Conception Prior Menses Frequency Hcg Plus Date Menarche Onset Age Delivery Information Delivery Date Delivery Type Labor Anesthesia Weeks Gestation Incision Type Labor Labor Length Hrs Delivered By Post Complications Tubal Sterilization Discharge Date Comments 7 Local 38 Emergent ; ? abruption ; @ [facility] Discharge Information Feeding Method Contraceptive Method Maternal HG B and HCT Levels
--- NOTE | 2025-02-20 03:27 | ED_ITS ---
Discharge Plan Disposition Patient Disposition: Left Against Medical Advice Prescriptions Prescriptions: New atenolol 25 mg tablet 25 mg PO DAILY Qty: 60 1RF No Action clonidine HCl 0.1 mg tablet 0.1 mg PO DAILY citalopram 20 mg tablet 20 mg PO DAILY Patient Comments: TAKE ONE HALF (1/2) TABLET FOR FOUR (4) DAYS, THEN TAKE ONCE DAILY buspirone 10 mg tablet 10 mg PO DAILY propranolol 20 mg tablet 20 mg PO DAILY Patient Comments: TAKE ONE (1) TABLET TWICE A DAY BY ORAL ROUTE, FOR PANIC ATTACKS. medroxyprogesterone 150 mg/mL suspension 150 mg IM ONCE Patient Comments: INJECT ONE (1) ML INTRAMUSCULARLY EVERY THREE (3) MONTHS hydroxyzine pamoate 25 mg capsule 25 mg PO DAILY Referrals Follow up/Referrals: Provider,Referral, MD [Primary Care Provider, Medical] - See instructions Activity Restrictions/Add. Instructions Additional Instructions/Restrictions: Please follow-up with your primary care provider for further assessment of your elevated thyroid levels, you may need further blood work or ultrasound. You also need to have your potassium rechecked. Clinical Impressions Clinical Impression: Acute hypokalemia, Hyperthyroidism Print Language Print Language: Greenlandic Discharge ED Provider: Som Mcgee General Adult HPI General Chief complaint: Chest Pain Stated complaint: chest pain Time Seen by Provider: 02/20/25 03:25 Mode of Arrival: EMS Source of Information: Patient Description of Symptoms (Recalled from ER Triage Doc. by RN): Pt states she was at work when she began to have chest heaviness associated with stomach pain and an episode of vomiting. Pt denies any , on depo shot. Pt informed me she did do Kratom for the first time 3-4 days ago , she is unsure if it is associated. History of Present Illness HPI narrative: 24-year-old female with history of anxiety presents for multiple complaints. She reports that she was at work and she started getting weak and dizzy and fell like she was about to pass out. She reports that she has been having profuse watery diarrhea for the last several days. She reports that she went to a concert a few days ago and used kratom for the first time, she is not sure if that is involved. She reports that she had some chest heaviness tonight associated with this episode as well as an episode of vomiting and some stomach pain. Related Data Home Medications ?Medication ?Instructions ?Recorded ?Confirmed buspirone 10 mg tablet 10 mg PO DAILY 09/23/2309/03 citalopram 20 mg tablet 20 mg PO DAILY 09/23/2309/03 clonidine HCl 0.1 mg tablet 0.1 mg PO DAILY 09/23/23 0 09/23/23 hydroxyzine pamoate 25 mg capsule 25 mg PO DAILY 09/2309/23/23 medroxyprogesterone 150 mg/mL 150 mg IM ONCE 09/23/23 09/23/23 intramuscular suspension propranolol 20 mg tablet 20 mg PO DAILY 09/23/2309/03 Previous Rx's ?Medication ?Instructions ?Recorded atenolol 25 mg tablet 25 mg PO DAILY #60 tabs 01/31 09/26 Allergies Allergy/AdvReac Type Severity Reaction Status Date / Time Penicillins Allergy Verified 04/01/22 13:22 sertraline Allergy Verified 09/18/23 17:44 [facility] Disclaimer: The information contained in this section may have been updated after the patient was seen, as this information can be updated by other users. Social History (Updated 04/01/22 @ 13:18 by Paola Yancey RN) Smoking Status: Current every day smoker alcohol intake: never current occupational status: unemployed Travel in the last 8 weeks?: None Other Medical History Have you received the Flu Vaccine for this season: Yes Have you received the Pneumonia Vaccine: No ROS Obtained: Yes All systems reviewed & no additional complaints except as documented Physical Exam General General appearance: alert and anxious Comment: Tearful Head Head exam: atraumatic and normocephalic Eye Eye exam: Present normal appearance, PERRL and EOMI ENT ENT exam: Present normal oropharynx and normal external ear exam Neck Neck exam: Present normal inspection and full ROM Chest Chest inspection: Present normal inspection and symmetric chest wall rise; Absent tenderness Respiratory Respiratory exam: Present normal lung sounds bilaterally; Absent respiratory distress Cardiovascular Cardiovascular exam: Present regular rate and normal rhythm Abdominal Exam Abdominal exam: Present soft; Absent distention, tenderness or guarding Extremities Exam Extremities exam: Present normal inspection; Absent edema or joint swelling Back Exam Back exam: Present normal inspection; Absent tenderness Neurological Exam Neurological exam: Present alert and oriented X3; Absent motor sensory deficit Psychiatric Psychiatric exam: Present normal affect and normal mood Skin Skin exam: Present warm, dry and normal color Lymphatic Lymphatic Findings: no adenopathy Medical Decision Making Medical Records Medical records reviewed: Yes I reviewed the patient's medical records. Screening: Per USPSTF and CDC recommendations, given the prevalence of disease in our region, it is our hospital?s policy to screen for HIV and viral Hepatitis for all patients aged 18 and over and those with ongoing risk factors. Ba Inquiry Pt receiving controlled substance: No Ba was queried for this patient: No Vital Signs: 02/20/25 03:14 02/20/25 04:00 02/20/25 04:30 Temperature 98.1 F Temperature Source Oral Pulse Rate 59 L 66 Pulse Rate [Left] 79 Respiratory Rate 24 14 17 Blood Pressure 167/92 H 171/94 H Blood Pressure [Right Arm] 145/89 H Blood Pressure Mean [Right Arm] 107 Blood Pressure Source [Right Arm] Automatic Cuff Blood Pressure Position [Right Arm] Sitting 02 Sat by Pulse Oximetry 100 100 100 Oxygen Delivery Method Room Air 02/20/25 05:00 Temperature Temperature Source Pulse Rate 75 Pulse Rate [Left] Respiratory Rate 17 Blood Pressure 157/107 H Blood Pressure [Right Arm] Blood Pressure Mean [Right Arm] Blood Pressure Source [Right Arm] Blood Pressure Position [Right Arm] 02 Sat by Pulse Oximetry 100 Oxygen Delivery Method Lab Data Lab results reviewed: Yes I reviewed the patient's lab results. Lab Results 02/20/25 02:51: WBC 14.1 H, RBC 4.02 L, Hgb 14.3, Hct 37.7, MCV 93.8, MCH 35.6 H , MCHC 37.9 H, RDW 11.3 L, Plt Count 324, MPV 11.3 H, Neut % (Auto) 62.3, Lymph % (Auto) 30.3, [place] % (Auto) 5.7, Eos % (Auto) 0.9, Baso % (Auto) 0.4, Neut # (Auto) 8.8 H, Lymph # (Auto) 4.3, [place] # (Auto) 0.8, Eos # (Auto) 0.1, Baso # (Auto) 0.1, Sodium 136, Potassium 2.6 L*, Chloride 100, Carbon Dioxide 21 L, [place] 17.6 H, BUN 8, Creatinine 0.90, Estimated Creat Clear 96, Estimated GFR 76, Est GFR ( Amer) 92, Glucose 86, Calcium 10.2, Magnesium 1.6, Total Bilirubin 3.3 H, AST 47 H, ALT 30, Alkaline Phosphatase 96, Total Protein 9.4 H, Albumin 5.4 H, Globulin 4.0 H, Albumin/Globulin Ratio 1.4, TSH 0.52, Thyroxine (T4) 14.7 H, Serum HCG, Qual Negative, HCV Ab MICAELA w/Rflx PCR Qn Negative, HIV Ag/Ab Combo Qual Negative 02/20/25 02:51 02/20/25 02:51 Orders (Tests/Meds): ED MEDICATIONS Discontinued Medications Generic Name Dose Route Start Last Admin Trade Name Freq PRN Reason Stop Dose Admin Diazepam 5 mg 02/20/25 05:43 02/20/25 05:56 Diazepam 10mg/2ml Syringe IV 02/20/25 05:44 5 mg ONCE ONE Administration Sodium Chloride 1,000 mls @ 999 mls/hr 02/20/25 03:45 02/20/25 03:44 Sod Chlor 0.9% 1000ml Bag IV 02/20/25 04:45 999 mls/hr .Q1H1M OSORIO Administration Potassium Chloride/Water 100 mls @ 100 mls/hr 02/20/25 04:08 02/20/25 05:56 Potassium Chloride 10meq/100ml Ivpb IV 02/20/25 06:07 100 mls/hr Q1H OSORIO Administration Magnesium Sulfate 2 gm in 50 mls @ 150 mls/hr 02/20/25 04:08 02/20/25 05:01 Magnesium Sulfate 2gm/50ml Premix IV 02/20/25 04:27 150 mls/hr ONCE ONE Administration Ondansetron HCl 4 mg 02/20/25 03:37 02/20/25 03:44 Ondansetron 4mg/2ml Vial IV 02/20/25 03:38 4 mg ONCE ONE Administration Potassium Chloride 60 meq 02/20/25 04:08 02/20/25 04:59 Potassium Chloride 20meq Tab PO 02/20/25 04:09 60 meq ONCE ONE Administration ORDERS Category Date Time Status CBC w/Auto Diff [Complete Blood Count Auto Diff] Stat Lab 02/20/25 02:51 Completed CMP [Comprehensive Metabolic Panel] Stat Lab 02/20/25 02:51 Completed Diarrhea 23 Panel, PCR Stat Lab 02/20/25 03:38 Ordered HIV Combo Routine Lab 02/20/25 02:51 Completed Hepatitis C Ab Qual. W/ RFX Routine Lab 02/20/25 02:51 Completed Magnesium Stat Lab 02/20/25 02:51 Completed Potassium Stat Lab 02/20/25 02:51 Received Serum [HCG Qualitative, Serum] Stat Lab 02/20/25 02:51 Completed T4 (Thyroxine) Stat Lab 02/20/25 02:51 Completed TSH [Thyroid Stimulating Hormone] Stat Lab 02/20/25 02:51 Completed ECG Data Tracing #1: I reviewed this ECG and interpreted as documented below: Sinus rhythm, evidence of WPW or other conduction abnormality, no ischemic changes or evidence of arrhythmia. ECG initial impression date: 02/20/25 ECG initial impression time: 03:07 Medical Decision Narrative: 24-year-old female with history of anxiety presents for episode at work with some chest heaviness, dizziness, nausea, vomiting, generalized weakness. Has been having diarrhea for several days. History was obtained via interactive discussion with patient, EMS, chart review. On arrival, patient is [afebrile, hemodynamically stable, satting appropriately, alert, oriented x4, GCS 15], moving all extremities spontaneously. Full physical exam performed and significant for dry mucous membranes Differential includes but is not limited to dehydration, gastroenteritis, electrolyte derangement, arrhythmia, thyroid abnormality. Patient was given Zofran and 1 L IV fluids for symptomatic management and correction of underlying abnormalities. Workup initiated including CBC CMP mag TSH T4 EKG serum test. On re-evaluation, patient [remains afebrile, HD stable.] Laboratory workup independently interpreted by me and significant for low normal magnesium, significantly low potassium at 2.6. This likely explains patient's symptoms. Patient also has low normal TSH and elevated T4 consistent with hyperthyroidism. Given patient history, exam and workup, patient's presentation most likely represents mild hypothyroidism as well as hypokalemia secondary to recent diarrheal illness. We attempted to obtain a stool sample for patient but she was unable to get one while she was here. Patient was given oral and IV potassium repletion. During the stay patient was repeatedly tearful and concerned and anxious. Ultimately she decided she could not stay and decided to leave A prior to full potassium repletion. Discussed with her the importance of completing her medical treatment but she reports she cannot stay and has to go. I prescribed her atenolol for her hypothyroidism and I encouraged her to establish care with a PCP for further assessment. Procedures Risk/Benefits of Procedure(s) Were Explained: Yes Critical Care Critical Care Time Critical Care Time: Yes Attestation: On 02/20/25, the high probability of a clinically significant, sudden or life threatening deterioration of the following system(s) required my full and direct attention, intervention and personal management. The time I documented below is in addition to time spent performing reported procedures but includes the following listed in this critical care notation. Total Time Total Critical Care Time: 30
[2025-02-20] MEDS: ONDANSETRON 4MG/2ML VIAL 4 MG IV (03:44)
[2025-02-20] MEDS: 0.9 % SODIUM CHLORIDE 1000ML 1,000 ML 999 ML IV (03:44)
[2025-02-20 03:48] LABS: Hematocrit 37.7 % (37.0-47.0); Hemoglobin 14.3 g/dL (12.2-16.2); Immature Granulocytes % 0.4 %; Mean Corpuscular HGB Conc 37.9 g/dL (31.8-35.4); Mean Corpuscular Hemoglobin 35.6 pg (27.0-31.2); Mean Corpuscular Volume 93.8 fl (81-99); Nucleated Red Blood Cells % 0 %; Platelet Count 324 K/mm3 (142-424); Red Blood Count 4.02 M/mm3 (4.20-5.40); Red Cell Distribution Width-SD 38.7 fL; White Blood Count 14.1 K/mm3 (4.8-10.8)
[2025-02-20 03:49] LABS: Chloride 100 mmol/L (98-107)
[2025-02-20 03:50] LABS: Albumin Level 5.4 g/dl (3.5-5.0); Sodium 136 mmol/L (136-145)
[2025-02-20 03:52] LABS: Blood Urea Nitrogen 8 mg/dl (7-17); Creatinine Clearance Estimated 96 mL/min (50-200); Creatinine,Serum 0.90 mg/dl (0.52-1.04); Estimated Glomerular Filt Rate 76 ml/min (>60); GFR (African American) 92 ML/MIN (>60)
[2025-02-20 03:53] LABS: Alanine Aminotransferase 30 U/L (12-78); Albumin/Globulin Ratio 1.4 (1.1-1.8); Alkaline Phosphatase 96 U/L (38-126); Anion Gap 17.6 mEq/L (5-15); Aspartate Amino Transferase 47 U/L (14-36); Bilirubin,Total 3.3 mg/dl (0.2-1.3); Calcium 10.2 mg/dl (8.4-10.2); Carbon Dioxide 21 mmol/L (22.0-30.0); Globulin 4.0 g/dL (1.3-3.2); Glucose 86 mg/dl (74-100); Magnesium 1.6 mg/dl (1.6-2.3); Total Protein,Serum 9.4 g/dl (6.3-8.2)
[2025-02-20 04:00] VITALS: BP 167/92; PULSE 59; RESP 14; O2SAT 100
[2025-02-20 04:04] LABS: Potassium 2.6 mmoL/L (3.5-5.1)
--- NOTE | 2025-02-20 04:04 | PC.NURSE ---
Notified Dr Mcgee of critical K+ 2.6
[2025-02-20 04:10] LABS: T4 (Thyroxine) 14.7 ug/dl (5.53-11.0)
[2025-02-20 04:24] LABS: Thyroid Stimulating Hormone 0.52 uIU/mL (0.465-4.68)
[2025-02-20 04:30] VITALS: BP 171/94; PULSE 66; RESP 17; O2SAT 100
[2025-02-20 04:58] LABS: Hepatitis C Ab Qual. W/ RFX NEGATIVE (Negative)
[2025-02-20] MEDS: POTASSIUM CHLORIDE 20MEQ TAB 60 MEQ PO (04:59)
[2025-02-20 05:00] VITALS: BP 157/107; PULSE 75; RESP 17; O2SAT 100
[2025-02-20] MEDS: MAGNESIUM SULFATE IN WATER 2 GM/50 ML PIGGYBACK IV (05:01)
[2025-02-20 05:40] LABS: HCG Qualitative, Serum Negative (Negative)
--- NOTE | 2025-02-20 05:43 | PC.NURSE ---
Pt called out requesting to use restroom, Amber Munguia came to me an informed me she was very anxious. Upon entering the room, she was crying thinking staff was talking about her being positive for multiple drugs. I informed her we have not checked her for any drugs and staff was not talking about anyone or drugs. She states she had a concussion back in October and she feels like she is always paranoid. Pt reassured by Dr Mcgee. Pt will be given Valium per Dr Mcgee to help with he anxiety.
[2025-02-20] MEDS: diazePAM 10MG/2ML SYRINGE 5 MG IV (05:56)
--- NOTE | 2025-02-20 06:55 | PC.NURSE ---
Pt finished her potassium, she informed me she needs to leave...she doesnt want to be here any longer. Pt is leaving AMA, potassium was complete but recheck was not done.
[2025-02-20 06:59] VITALS: BP 126/89; PULSE 89; RESP 16; TEMP 36.6; O2SAT 98
== END 2025-02-20 07:00 | disposition left against medical advice (07) ==
PROVIDERS: Emergency Provider Emergency Medicine
DX: R07.9 Chest pain, unspecified (principal); E05.90 Thyrotoxicosis, unspecified without thyrotoxic crisis or storm; E87.6 Hypokalemia; F32.A Depression, unspecified
CPT/HCPCS: 80053; 83735; 84436; 84443; 84703; 85025; 86803; 87389; 93005; 96361; 96365; 96367; 96375; 99291; J2405; J3360; J3475; J3480; J7030